=== PATIENT | female | born 1960 | race Two or more races ===

== ENCOUNTER 2020-08-11 14:03 | Outpatient (REF) | payer OTHER, SELFPAY | END 2020-08-11 14:04 | disposition home or self-care (01) | LOC: HO.LAB 14:03 | PROVIDERS: PCP Internal Medicine; Visit Provider Internal Medicine | DX: Z20.828 Contact with and (suspected) exposure to other viral communicable diseases (principal) | CPT/HCPCS: 87635 ==

== ENCOUNTER 2020-08-23 13:51 | Outpatient (REF) | payer OTHER, SELFPAY | END 2020-08-23 13:52 | disposition home or self-care (01) | LOC: HO.LAB 13:51 | PROVIDERS: Visit Provider Internal Medicine | DX: Z20.828 Contact with and (suspected) exposure to other viral communicable diseases (principal) | CPT/HCPCS: 87635 ==

== ENCOUNTER 2021-03-04 12:16 | Emergency (ER) | payer OTHER, SELFPAY ==
--- NOTE | ~2021-03-04 | CT_ITS ---
EXAMINATION: CT SOFT TISSUE NECK WITH CONTRAST CLINICAL INFORMATION: Submandibular mass. COMPARISON: CT facial bones from 03/04/2021. TECHNIQUE: Multidetector helical imaging was performed in the axial plane following the administration of 60 mL of Omnipaque 350 intravenous contrast. Multiple axial reformats and coronal/sagittal reconstructions were created the technologist workstation for review. This CT examination was performed using dose optimization techniques as appropriate, variously including the following: *Automated exposure control. *Adjustment of mA and/or kV according to patient size (this includes techniques or standardized protocols for targeted exams where dose is matched to indication/reason for exam; i.e. extremities or head). *Use of iterative reconstruction technique. DLP: 491 mGy-cm FINDINGS: There is cutaneous thickening in the anterior midline of the neck was 0.6 cm focal nodular thickening extending into the subcutaneous tissues. The parotid and submandibular glands are normal in appearance. Level Ib and IIa lymph nodes measure up to 1.6 cm bilaterally. Multinodular thyroid gland. There is a heterogeneous nodule measuring up to 1.6 cm in the upper pole the right thyroid lobe. Mild to moderate phlegmonous soft tissue edema within the posterior neck. No discrete fluid collection within the deep tissues of the neck. The premaxillary, retromaxillary, pterygopalatine fossa, orbital apical, parapharyngeal, and prelaryngeal adipose tissue is maintained. Otherwise, scattered subcentimeter lymph nodes bilaterally, none of which are pathologically enlarged or abnormally enhancing. No focal lesion or abnormal enhancement within the intrinsic tissues of the tongue or floor of mouth. Normal mucosal contours of the pharynx and larynx without abnormal enhancement. Normal appearance of the hyoid bone, thyroid cartilage, or cartilaginous trachea. The airways remains widely patent. No radiopaque foreign bodies. The atlantooccipital and atlantoaxial articulations remain well aligned. There is anatomic alignment of the vertebral bodies and posterior elements. No evidence of acute fracture or subluxation of the cervical spine. The vertebral body heights are maintained. Straightening of the normal cervical lordosis. Advanced degenerative disc disease at C5-C6 and C6-C7 with disc-osteophyte complex formation. Facet and uncovertebral joint arthropathy leads to osseous encroachment on the neural foramina from C4-C7. No evidence of epidural collection. There is no prevertebral soft tissue swelling. Normal opacification of the cervical arterial and venous structures. The visualized portion of the skull base is without significant abnormalities. The visualized paranasal sinuses are clear. The mastoid air cells and middle ear cavities are clear. Periapical lucency surrounding the maxillary 2nd [address]olar. [address] Upper Chest: The visualized lung apices and upper mediastinum are within normal limits. CT/CT soft tissue neck w con IMPRESSION: 1. Cutaneous thickening and 0.6 cm focal nodular thickening in the subcutaneous tissues of the anterior neck suggestive. In the acute setting, findings are suggestive of cellulitis. Other cutaneous lesions could be considered in the appropriate clinical setting. Mildly prominent nonspecific upper cervical chain lymph nodes. Normal appearance of the parotid and submandibular glands. 2. There is a 1.6 cm nodule in the right thyroid lobe. Recommend further characterization with ultrasound.
--- NOTE | ~2021-03-04 | CT_ITS ---
EXAMINATION: CT FACIAL BONES WITH CONTRAST CLINICAL INFORMATION: Enlarging submandibular mass. Clinical concern regarding abscess. COMPARISON: None TECHNIQUE: Multidetector CT. Examination of the facial region. Imaging after the IV administration of 60 mL of Omnipaque [address] examination was performed using dose optimization techniques as appropriate, variously including the following: *Automated exposure control *Adjustment of mA and/or kV according to patient size (this includes techniques or standardized protocols for targeted exams where dose is matched to indication/reason for exam; i.e. extremities or head) *Use of iterative reconstruction technique DLP: 284 mGy-cm FINDINGS: The anatomy includes from the level of the body of the ventricles to the level of the hyoid region. Specifically, the submandibular region is not completely included. Additional or repeat imaging is recommended. The laterality of the clinical concern is not provided. On the images submitted there is no submandibular abscess demonstrated. There is no focal lesion demonstrated in the parotid on either side. The nasal cavity, nasopharynx, oropharynx, hypopharynx are patent. No enlargement of the epiglottis. No abnormality in the orbit, infratemporal fossa, floor the mouth or visualized portions of the brain. The frontal, ethmoid, sphenoid and maxillary sinuses are well pneumatized and aerated. No definite abnormality the mastoids. Several of the teeth are missing. There is enhancement in the visualized carotids, jugulars and vertebral arteries. There is no suspicious soft tissue mass demonstrated. There are some nonspecific cervical lymph nodes on each side. No definite abnormality in the visualized portions of the spinal canal. CT/CT facial bones w con IMPRESSION: The study was performed through the maxillofacial region and does not include the entire neck soft tissues. Specifically the lower aspect of the submandibular glands are not included. Correlation is necessary to determine if the appropriate area was included. The specific area of clinical concern was not provided. No abscess is demonstrated on the images submitted.
[2021-03-04 12:33] VITALS: BP 154/80; PULSE 105; RESP 20; TEMP 36.6; O2SAT 96; BMI 29.1
[2021-03-04 13:59] LABS: MANUAL DIFF FLAG NO
[2021-03-04 14:00] LABS: Basophils Absolute Auto 0.1 X10*3/uL (0.0-0.2); Basophils Percent Auto 0.6 % (0-2); Eosinophils Absolute Auto 0.2 X10*3/uL (0.0-0.4); Eosinophils Percent Auto 2.5 % (0-4); Hematocrit 45.4 % (37-47); Imm Gran Abs Auto 0.02 X10*3/uL (0.00-0.03); Imm Gran Pct Auto 0.2 % (0.0-0.4); Lymphocytes Absolute Auto 2.5 X10*3/uL (1.2-4.9); Mean Corpuscular Hemoglobin 30.2 pg (27.0-33.0); Mean Corpuscular Volume 91.3 fL (80-98); Monocytes Absolute Auto 0.6 X10*3/uL (0.1-1.2); Monocytes Percent Auto 7.5 % (2-11); Neutrophils Percent Auto 59.2 % (45-73); Platelet Count 252 X10*3/uL (160-400); Red Blood Count 4.97 X10*6/uL (4.20-5.50); Red Cell Distribution Width 11.8 % (11.0-16.0); White Blood Count 8.4 X10*3/uL (4.8-10.8)
[2021-03-04 14:27] LABS: Anion Gap 20 (12-20); Blood Urea Nitrogen 12 mg/dL (9-16); Calcium 9.7 mg/dL (8.4-10.2); Carbon Dioxide 20 mmol/L (22-29); Chloride 103 mmol/L (96-108); Estimated Glomerular Filt Rate > 60; Glucose Random 266 mg/dL (60-115); Potassium 4.4 mmol/L (3.3-5.1); Sodium 139 mmol/L (135-145)
[2021-03-04] MEDS: iohexoL 350 MG/ML 100 ML INFUS..BTL IV ×2 (15:21→17:16)
[2021-03-04 16:34] VITALS: BP 135/79; PULSE 89; RESP 18; O2SAT 98
[2021-03-04] MEDS: 0.9 % Sodium Chloride 1,000 ML 999 ML IVCONT (16:34)
--- NOTE | 2021-03-04 17:00 | PC.NURSE ---
PT RETURNED FROM CT W/O INCIDENT. IV NS HOOKED BACK UP AND IS INFUSING. WAITING REPORTS.
--- NOTE | 2021-03-04 17:59 | ED.SKABFB ---
HPI - Skin/Abscess/Foreign Bdy General Chief complaint: Skin/Abscess/Foreign Body Stated complaint: lump on throat Time Seen by Provider: 03/04/21 12:43 History of Present Illness HPI narrative: Patient complains of lump under chin that developed over the last 24 hours that is mildly uncomfortable, there is no fever no chills no difficulty breathing or swallowing, no other rash Related Data Previous Rx's Medication Instructions Recorded dulaglutide 1.5 mg/0.5 mL 0.75 mg SUBCUT QWEEK 30 Days #1.25 11/25/20 subcutaneous pen injector ml metformin 1,000 mg tablet 1,000 mg PO BID 90 Days #180 tab 11/25/20 ezetimibe 10 mg tablet 10 mg PO DAILY 90 Days #90 tab 12/20/20 meclizine 25 mg tablet 25 mg PO TID PRN #90 tab 12/20/20 sumatriptan succinate 50 mg tablet 50 mg PO DAILY PRN 30 Days #9 tab 12/20/20 amitriptyline 10 mg tablet 10 mg PO BEDTIME #30 tab 01/09/21 blood sugar diagnostic 1 strip MISCELLANEOUS BID 30 Days 01/09/21 #50 strip fluticasone propionate 50 1 spray INTRANASAL BID 30 Days #16 01/09/21 mcg/actuation nasal g spray,suspension lancets 28 gauge #100 ea 01/09/21 sitagliptin 100 mg tablet 100 mg PO DAILY 90 Days #90 tab 01/09/21 cephalexin 500 mg PO QID 7 Days #28 tab 03/04/21 doxycycline hyclate 100 mg PO BID 7 Days #14 cap 03/04/21 Allergies Allergy/AdvReac Type Severity Reaction Status Date / Time Iodinated Contrast Media Allergy Severe VOMITING/SW Verified 01/09/21 16:00 [IV Dye, Iodine Containing] ELLING ibuprofen [From MOTRIN] Allergy Intermediate NAUSEA, Verified 01/09/21 16:00 stomach upset pravastatin AdvReac Unknown elevated Verified 01/09/21 16:00 liver enzymes Review of Systems Review of Systems: Positive for submandibular mass Negatives are no fever no chills no dizziness no weakness no sore throat no difficulty breathing or swallowing or speaking no dental pain no toothache no anorexia no neck pain no chest pain no shortness of breath no vomiting no rash no numbness or weakness Yes all other systems are reviewed and are negative PMFSH Past Medical History Source: nursing notes reviewed Medical History (Updated 03/04/21 @ 18:38 by ERIC Cho) Allergic rhinitis Diabetes mellitus Essential hypertension Migraines Pure hypercholesterolemia Surgical History H/O bilateral breast reduction surgery History of parathyroidectomy History of removal of ovarian cyst Family History Family History Father Leukemia Mother CVD (cardiovascular disease) Sister No problems noted. Brother No problems noted. Social History Social History Smoking Status: Never smoker Advance Directives: No Advance Directives Information Provided: Yes Physical Exam Vital Signs: Vital Signs: Last Vital Signs Temp 97.8 F 03/04/21 12:33 Pulse 89 03/04/21 16:34 Resp 18 03/04/21 16:34 BP 135/79 03/04/21 16:34 Pulse Ox 98 03/04/21 16:34 Body Mass Index 29.1 General appearance is no acute distress calm and cooperative The ears are clear The pharynx is clear with no swelling redness or exudate The voice is normal, there is no impairment of breathing and swallowing no trismus no drooling no voice change The neck is supple There is a mildly tender submandibular mobile mass that is 2-3 cm x 2-3 cm, no redness no fluctuance no discharge The chest is clear to auscultation bilaterally with full symmetrical equal breath sounds Heart no murmur Abdomen soft nontender The extremities full range of motion x4 The skin no rashes Neuro no focal deficit Course Course Course Narrative: Facial CT was ordered for evaluation of submandibular mass Radiologist called and reported that the submandibular area could not be fully seen and a neck CT was ordered Patient remains, and stable throughout the ER visit with no acute changes, vital signs were normal CT scan of soft tissue neck showed findings consistent with cellulitis, no abscess was visualized There was also an incidental finding of a nodule on the right thyroid and they recommended follow-up with an ultrasound, this was explained via fire extinguisher tester to the patient who understood and said she could easily make a follow-up appointment with her doctor and she was given a copy of the report Patient remains well appearing and stable and is discharged on oral antibiotics with advice to return in 2 days for recheck and clear explanation that any increased swelling she should return immediately MDM - Skin/Abscess/Foreign Bdy Lab Data Attestation: I reviewed the patient's lab results. Result diagrams: 03/04/21 13:48 03/04/21 13:48 Labs: Lab Results 03/04/21 03/04/21 Range/Units 13:48 13:48 WBC 8.4 (4.8-10.8) X10*3/uL RBC 4.97 (4.20-5.50) X10*6/uL Hgb 15.0 (12.0-16.0) g/dl Hct 45.4 (37-47) % MCV 91.3 (80-98) fL MCH 30.2 (27.0-33.0) pg MCHC 33.0 (31.0-35.0) g/dl RDW 11.8 (11.0-16.0) % Plt Count 252 (160-400) X10*3/uL MPV 11.0 (9.4-12.3) fL Immature Gran % (Auto) 0.2 (0.0-0.4) % Neut % (Auto) 59.2 (45-73) % Lymph % (Auto) 30.0 (20-40) % [place] % (Auto) 7.5 (2-11) % Eos % (Auto) 2.5 (0-4) % Baso % (Auto) 0.6 (0-2) % Lymph # (Auto) 2.5 (1.2-4.9) X10*3/uL [place] # (Auto) 0.6 (0.1-1.2) X10*3/uL Eos # (Auto) 0.2 (0.0-0.4) X10*3/uL Baso # (Auto) 0.1 (0.0-0.2) X10*3/uL Abs Immat Gran (auto) 0.02 (0.00-0.03) X10*3/uL Absolute Neuts (auto) 5.0 (2.0-8.3) X10*3/uL Absolute Nucleated RBC 0.000 (0.0-0.012) X10*3/uL Nucleated RBC % (auto) 0.0 (0.0-0.2) /100WBC Sodium 139 (135-145) mmol/L Potassium 4.4 (3.3-5.1) mmol/L Chloride 103 (96-108) mmol/L Carbon Dioxide 20 L (22-29) mmol/L Anion Gap 20 (12-20) BUN 12 (9-16) mg/dL Creatinine 0.91 (0.5-1.4) mg/dL Estim Creat Clear Calc 71.0 Estimated GFR > 60 Random Glucose 266 H (60-115) mg/dL Calcium 9.7 (8.4-10.2) mg/dL Imaging Data Neck CT soft tissue: Radiologist's impression: [address] [id number] Scan ReportSigned Patient: Kerry Burch DMR#: [id number]: 08/12/1961Acct:[id number]/Sex: 59 / FADM Date: 03/04/21Loc: [address] Dr: Ordering Physician: CAMI MARIA Date of Service: 03/04/21 Procedure(s): CT soft tissue neck w con Accession Number(s): [id number] cc: CAMI MARIA~ EXAMINATION: CT SOFT TISSUE NECK WITH CONTRAST CLINICAL INFORMATION: Submandibular mass. COMPARISON: CT facial bones from 03/04/2021. TECHNIQUE: Multidetector helical imaging was performed in the axial plane following the administration of 60 mL of Omnipaque 350 intravenous contrast. Multiple axial reformats and coronal/sagittal reconstructions were created the technologist workstation for review. This CT examination was performed using dose optimization techniques as appropriate, variously including the following: *Automated exposure control. *Adjustment of mA and/or kV according to patient size (this includes techniques or standardized protocols for targeted exams where dose is matched to indication/reason for exam; i.e. extremities or head). *Use of iterative reconstruction technique. DLP: 491 mGy-cm FINDINGS: There is cutaneous thickening in the anterior midline of the neck was 0.6 cm focal nodular thickening extending into the subcutaneous tissues. The parotid and submandibular glands are normal in appearance. Level Ib and IIa lymph nodes measure up to 1.6 cm bilaterally. Multinodular thyroid gland. There is a heterogeneous nodule measuring up to 1.6 cm in the upper pole the right thyroid lobe. Mild to moderate phlegmonous soft tissue edema within the posterior neck. No discrete fluid collection within the deep tissues of the neck. The premaxillary, retromaxillary, pterygopalatine fossa, orbital apical, parapharyngeal, and prelaryngeal adipose tissue is maintained. Otherwise, scattered subcentimeter lymph nodes bilaterally, none of which are pathologically enlarged or abnormally enhancing. No focal lesion or abnormal enhancement within the intrinsic tissues of the tongue or floor of mouth. Normal mucosal contours of the pharynx and larynx without abnormal enhancement. Normal appearance of the hyoid bone, thyroid cartilage, or cartilaginous trachea. The airways remains widely patent. No radiopaque foreign bodies. The atlantooccipital and atlantoaxial articulations remain well aligned. There is anatomic alignment of the vertebral bodies and posterior elements. No evidence of acute fracture or subluxation of the cervical spine. The vertebral body heights are maintained. Straightening of the normal cervical lordosis. Advanced degenerative disc disease at C5-C6 and C6-C7 with disc-osteophyte complex formation. Facet and uncovertebral joint arthropathy leads to osseous encroachment on the neural foramina from C4-C7. No evidence of epidural collection. There is no prevertebral soft tissue swelling. Normal opacification of the cervical arterial and venous structures. The visualized portion of the skull base is without significant abnormalities. The visualized paranasal sinuses are clear. The mastoid air cells and middle ear cavities are clear. Periapical lucency surrounding the maxillary 2nd [address]olar. [address] Upper Chest: The visualized lung apices and upper mediastinum are within normal limits. CT/CT soft tissue neck w con IMPRESSION: 1. Cutaneous thickening and 0.6 cm focal nodular thickening in the subcutaneous tissues of the anterior neck suggestive. In the acute setting, findings are suggestive of cellulitis. Other cutaneous lesions could be considered in the appropriate clinical setting. Mildly prominent nonspecific upper cervical chain lymph nodes. Normal appearance of the parotid and submandibular glands. 2. There is a 1.6 cm nodule in the right thyroid lobe. Recommend further characterization with ultrasound. Discharge Plan Discharge Clinical Impression: Cellulitis Qualifiers: Site of cellulitis: neck Qualified Code(s): L03.221 - Cellulitis of neck Patient Disposition: Home, Self-Care Additional Instructions: The swelling under her chin appears to be an infection but no abscess We are treating it with oral antibiotics Because of the location if it gets more swollen, more red, more painful, if you have any difficulty breathing or swallowing or speaking or any concerns, return to the ER any time Return to the ER in 2 days for recheck A thyroid lesion was seen on the CT scan which is not related to today's problem but should be followed closely by primary doctor Prescriptions: New doxycycline hyclate 100 mg capsule 100 mg PO BID 7 Days Qty: 14 RF: 0 cephalexin 500 mg tablet 500 mg PO QID 7 Days Qty: 28 RF: 0 No Action dulaglutide 1.5 mg/0.5 mL pen injector 0.75 mg subcut QWEEK 30 Days Qty: 1.25 RF: 6 metformin 1,000 mg tablet 1,000 mg PO BID 90 Days Qty: 180 RF: 2 sumatriptan succinate 50 mg tablet 50 mg PO DAILY PRN (Reason: migraine headache) 30 Days Qty: 9 RF: 6 ezetimibe 10 mg tablet 10 mg PO DAILY 90 Days Qty: 90 RF: 3 meclizine 25 mg tablet 25 mg PO TID PRN (Reason: dizziness) Qty: 90 RF: 0 amitriptyline 10 mg tablet 10 mg PO BEDTIME Qty: 30 RF: 3 Januvia 100 mg tablet 100 mg PO DAILY 90 Days Qty: 90 RF: 3 FreeStyle Lite Strips Strip 1 strip miscellaneous BID 30 Days Qty: 50 RF: 11 (DME) lancets [FreeStyle Lancets] 28 gauge misc See Rx Instructions .ROUTE .MEDSUPPLY Qty: 100 RF: 0 fluticasone propionate [Flonase Allergy Relief] 50 mcg/actuation spray,suspension 1 spray intranasal BID 30 Days Qty: 16 RF: 6
[2021-03-04] MEDS: cephALEXin 500 MG CAPSULE PO (18:51)
== END 2021-03-04 19:04 | disposition home or self-care (01) ==
PROVIDERS: Physician Assistant Medical; Emergency Provider Emergency Medicine; PCP Internal Medicine
DX: L03.221 Cellulitis of neck (principal); M54.2 Cervicalgia; Z79.899 Other long term (current) drug therapy
CPT/HCPCS: 36415; 70487; 70491; 80048; 85025; 99284; Q9967

== ENCOUNTER 2021-04-01 09:23 | Outpatient (REF) | payer OTHER, SELFPAY ==
[2021-04-01 10:36] LABS: Creatinine Urine 89.72 mg/dL; Microalbum/Creatinine Ratio Ur 16.7 ug/mg cr
[2021-04-01 10:39] LABS: Alanine Aminotransferase 53 U/L (0-31); Albumin Level 4.4 g/dL (3.5-5.0); Alkaline Phosphatase 66 U/L (39-117); Anion Gap 17 (12-20); Aspartate Amino Transferase 25 U/L (5-31); Bilirubin Total 0.5 mg/dL (0.0-1.0); Blood Urea Nitrogen 12 mg/dL (9-16); Calcium 9.8 mg/dL (8.4-10.2); Carbon Dioxide 22 mmol/L (22-29); Chloride 103 mmol/L (96-108); Cholesterol 194 mg/dL; Estimated Glomerular Filt Rate > 60; Glucose Fasting 332 mg/dL (60-99); HDL Cholesterol 44 mg/dL; LDL Cholesterol Calculated 92 mg/dl; Potassium 4.4 mmol/L (3.3-5.1); Sodium 138 mmol/L (135-145); Total Protein 7.2 g/dL (6.5-8.0); Triglycerides 292 mg/dL
[2021-04-01 11:02] LABS: Free T4 (Free Thyroxine) 1.05 ng/dL (0.71-1.85); Thyroid Stimulating Hormone 2.13 uIU/mL (0.32-4.0)
[2021-04-04 13:33] LABS: Thyroglobulin Antibodies <1 IU/mL (< or = 1); Thyroid Peroxidase Antibodies 23 IU/mL (<9)
[2021-04-05 14:01] LABS: Vitamin D 25-OH, D2 <4 ng/mL; Vitamin D 25-OH, D3 52 ng/mL; Vitamin D 25-OH, Total 52 ng/mL (30-100)
== END 2021-04-01 09:24 | disposition home or self-care (01) ==
LOC: HO.LAB 09:23
PROVIDERS: PCP Internal Medicine; Visit Provider Internal Medicine
DX: E11.9 Type 2 diabetes mellitus without complications (principal); E78.5 Hyperlipidemia, unspecified; I10 Essential (primary) hypertension; E55.9 Vitamin D deficiency, unspecified; E04.1 Nontoxic single thyroid nodule
CPT/HCPCS: 36415; 80053; 80061; 82043; 82306; 84439; 84443; 86376; 86800

== ENCOUNTER 2021-04-18 10:20 | Outpatient (REF) | payer OTHER, SELFPAY ==
--- NOTE | ~2021-04-18 | US_ITS ---
EXAMINATION: US THYROID CLINICAL INFORMATION: Nontoxic single thyroid nodule COMPARISON: CT soft tissue neck 03/04/2021. Ultrasound abdomen 11/23/2019 and 11/06/2018. TECHNIQUE: Linear transducer grayscale and color Doppler examination with attention to the region of the thyroid. FINDINGS: SIZE: Measurements of the thyroid lobes and nodules are given in sagittal, anteroposterior and transverse dimensions respectively. Right Thyroid Lobe: 5.4 x 1.4 x 2.8 cm, volume 11.3 mL. Parenchyma: The gland echotexture is homogeneous. Thyroid vascularity is normal. Left Thyroid Lobe: 6.0 x 1.7 x 2.1 cm, volume 10.7 mL. Parenchyma: The gland echotexture is homogeneous. Thyroid vascularity is normal. Isthmus: 0.14 cm in maximum AP dimension. Estimated total number of nodules greater than or equal to 1 cm: 1. Chain Forming Machine Operator nodules are described as follows: 1. Location: Right mid. Size: 1.6 x 0.85 x 1.5 cm, volume 1.1 mL. Nodule characteristics: Composition: Solid/almost completely solid (2). Echogenicity: Hypoechoic (2). Shape: Not taller than wide (0). Margins: Lobulated (2). Echogenic Foci: None (0). ACR TI-RADS total points:6 ACR TI-RADS category: 4 2. Location: Right inferior. Size: 0.68 x 0.38 x 0.5 cm, volume 0.07 mL. Nodule characteristics: Composition: Mixed cystic and solid (1). Echogenicity: Hypoechoic (2). Shape: Not taller than wide (0). Margins: Smooth (0). Echogenic Foci: None (0). ACR TI-RADS total points: 3 ACR TI-RADS category: 3 3. Location: Left inferior. Size: 0.74 x 0.53 x 0.69 cm, volume 0.14 mL. Nodule characteristics: Composition: Mixed cystic and solid (1). Echogenicity: Hypoechoic (2). Shape: Not taller than wide (0). Margins: Smooth (0). Echogenic Foci: None (0). ACR TI-RADS total points: 3 ACR TI-RADS category: 3 4. Location: Left inferior. Size: 0.68 x 0.43 x 0.81 cm, volume 0.12 mL. Nodule characteristics: Composition: Mixed cystic and solid (1). Echogenicity: Hypoechoic (2). Shape: Not taller than wide (0). Margins: Smooth (0). Echogenic Foci: None (0). ACR TI-RADS total points: 3 ACR TI-RADS category: 3 5. Location: Left inferior. Size: 0.43 x 0.29 x 0.43 cm, volume 0.03 mL. Nodule characteristics: Composition: Mixed cystic and solid (1). Echogenicity: Hypoechoic (2). Shape: Not taller than wide (0). Margins: Smooth (0). Echogenic Foci: None (0). ACR TI-RADS total points: 3 ACR TI-RADS category: 3 NODES: No lymphadenopathy is seen in the tissue surrounding the thyroid gland. US/US thyroid IMPRESSION: Upper normal-sized thyroid gland. Bilateral thyroid nodules. Largest nodule in the right mid lobe meets ultrasound TI RADS criteria for fine-needle aspiration is described below. ACR TI-RADS RECOMMENDATION REFERENCE: Ultrasound-guided fine-needle aspiration, followup ultrasound, no further follow up. * TR1 (0 point) and TR 2 (2 points): No FNA or follow up * TR3 (3 points): FNA if more than or equal to 2.5 cm in maximum dimension, followup ultrasound in 1, 3 and 5 years if 1.5 to 2.4 cm in maximum dimension. * TR4 (4-6 points): FNA if more than or equal to 1.5 cm in maximum dimension, followup ultrasound in 1, 2, 3 and 5 years if 1 to 1.4 cm in maximum dimension. * TR5 (more than or equal to 7 points): FNA if more than or equal to 1 cm in maximum dimension, followup ultrasound every year for 5 years if 0.5 to 0.9 cm in maximum dimension. * TR3, TR4 or TR5 nodules that are below the size threshold for follow up receive no follow up.
== END 2021-04-18 10:21 | disposition home or self-care (01) ==
LOC: HO.US 10:20
PROVIDERS: Visit Provider Internal Medicine
DX: E04.1 Nontoxic single thyroid nodule (principal)
CPT/HCPCS: 76536

== ENCOUNTER 2021-05-25 09:52 | Outpatient (REF) | payer OTHER, SELFPAY ==
--- NOTE | ~2021-05-25 | MM_ITS ---
EXAMINATION: MM SCREENING DIGITAL BREAST TOMOSYNTHESIS, BILATERAL CLINICAL INFORMATION: Screening. Asymptomatic. Prior reduction mammoplasty, 2012 The lifetime risk of breast cancer based on the Tyrer-Cuzick Model is 10%. COMPARISON: Mammography: 09/28/2019, 05/16/2018, 04/25/2017 TECHNIQUE: Digital breast tomosynthesis is performed in both the craniocaudal and mediolateral oblique views along with computer-aided detection (CAD). Synthesized 2D images are generated from the tomosynthesis. FINDINGS: There are scattered areas of fibroglandular density (ACR BI-RADS breast composition Category b). There are no significant masses, abnormal calcifications, or other abnormalities. There is minor scarring and scattered benign oil cysts consistent with the reduction mammoplasty. There is no developing density. No abnormal calcifications. No significant changes. MM/MM tomosynthesis screening BI IMPRESSION: No mammographic evidence of malignancy. ASSESSMENT: BI-RADS 2: Benign RECOMMENDATION: Routine annual mammography screening. This patient's information was entered into a reminder system with a target due date for their next mammogram.
== END 2021-05-25 09:53 | disposition home or self-care (01) ==
LOC: HO.MAMMO 09:52
PROVIDERS: Visit Provider Internal Medicine
DX: Z12.31 Encounter for screening mammogram for malignant neoplasm of breast (principal)
CPT/HCPCS: 77063; 77067

== ENCOUNTER 2022-05-29 09:11 | Outpatient (REF) | payer OTHER, SELFPAY ==
--- NOTE | ~2022-05-29 | MM_ITS ---
EXAMINATION: MM SCREENING DIGITAL BREAST TOMOSYNTHESIS, BILATERAL CLINICAL INFORMATION: Screening. Asymptomatic. Status post previous reduction mammoplasty. The lifetime risk of breast cancer based on the Tyrer-Cuzick Model is 16.7%. COMPARISON: Mammography: May 25, 2021 and studies dating back to February 19, 2014 TECHNIQUE: Digital breast tomosynthesis is performed in both the craniocaudal and mediolateral oblique views along with computer-aided detection (CAD). Synthesized 2D images are generated from the tomosynthesis. FINDINGS: There are scattered areas of fibroglandular density (ACR BI-RADS breast composition Category b). There are no new significant masses, abnormal calcifications, or other abnormalities. Postsurgical changes seen bilaterally. MM/MM tomosynthesis screening BI IMPRESSION: There are no significant changes from prior study. ASSESSMENT: BI-RADS 2: Benign RECOMMENDATION: Routine annual mammography screening. This patient's information was entered into a reminder system with a target due date for their next mammogram.
== END 2022-05-29 09:12 | disposition home or self-care (01) ==
LOC: HO.MAMMO 09:11
PROVIDERS: PCP Internal Medicine; Visit Provider Internal Medicine
DX: Z12.31 Encounter for screening mammogram for malignant neoplasm of breast (principal)
CPT/HCPCS: 77063; 77067

== ENCOUNTER 2022-06-21 10:00 | Outpatient (REF) | payer OTHER, SELFPAY ==
[2022-06-21 11:48] LABS: Alanine Aminotransferase 40 U/L (0-31); Albumin Level 4.4 g/dL (3.5-5.0); Alkaline Phosphatase 58 U/L (39-117); Anion Gap 18 (12-20); Aspartate Amino Transferase 23 U/L (5-31); Bilirubin Total 0.4 mg/dL (0.0-1.0); Blood Urea Nitrogen 13 mg/dL (9-16); Calcium 9.4 mg/dL (8.4-10.2); Carbon Dioxide 23 mmol/L (22-29); Chloride 100 mmol/L (96-108); Cholesterol 196 mg/dL; Estimated Glomerular Filt Rate > 60; Glucose Fasting 272 mg/dL (60-99); HDL Cholesterol 42 mg/dL; LDL Cholesterol Calculated 98 mg/dl; Phosphorus 3.8 mg/dL (2.7-4.5); Potassium 4.4 mmol/L (3.3-5.1); Sodium 137 mmol/L (135-145); Total Protein 7.3 g/dL (6.5-8.0); Triglycerides 280 mg/dL
[2022-06-21 11:55] LABS: Microalbum/Creatinine Ratio Ur 12.3 ug/mg cr
[2022-06-21 11:57] LABS: Vitamin D 25-OH Total 57.3 ng/mL (>30)
[2022-06-21 12:15] LABS: Free T4 (Free Thyroxine) 1.07 ng/dL (0.71-1.85); Thyroid Stimulating Hormone 2.25 uIU/mL (0.32-4.0); Vitamin D 25-OH Total 56.4 ng/mL (>30)
[2022-06-24 12:52] LABS: Calcium (PTHI) 9.7 mg/dL (8.6-10.4); PTHI 36 pg/mL (16-77)
== END 2022-06-21 10:01 | disposition home or self-care (01) ==
LOC: HO.LAB 10:00
PROVIDERS: Absent Provider Internal Medicine; PCP Internal Medicine; Visit Provider Internal Medicine
DX: E55.9 Vitamin D deficiency, unspecified (principal); E04.2 Nontoxic multinodular goiter; E78.5 Hyperlipidemia, unspecified; E11.65 Type 2 diabetes mellitus with hyperglycemia; Z86.39 Personal history of other endocrine, nutritional and metabolic disease
CPT/HCPCS: 36415; 80053; 80061; 82043; 82306; 83970; 84100; 84439; 84443

== ENCOUNTER 2022-10-04 08:42 | Outpatient (REF) | payer OTHER, SELFPAY ==
--- NOTE | 2022-10-04 09:18 | PM.OP ---
Brief Operative Note Date of Service: 10/04/22 Pre-op diagnosis: Multinodular Thyroid Procedure: This is doctor Wanda Chowdary. This is an ultrasound-guided fine-needle aspiration report. Date of Examination: Indication: Multinodular Thyroid Porcedure: Procedure was explained to the patient. Alternatives, the risk and benefits were discussed. Written consent was obtained. A time-out was also obtained. After sterile preparation, fine-needle aspiration of a right mid pole 1.6 cm thyroid nodule was performed using direct ultrasound guidance to confirm accurate needle placement. Four aspirations were made using 27 gauge needles. An additional 2 aspirations were made using 25 guage needles. Samples were submitted for cytology. One pass was dedicated for [employer] Gene sequencing horse shoer testing. The patient tolerated the procedure well. Aftercare instructions were provided. Impression: Uncomplicated fine needle aspiration biopsy of a right mid pole 1.6 cm thyroid nodule under ultrasound guidance. Surgeon: Wanda Chowdary, DO Was an Member Service Representative used for this Procedure?: No Estimated blood loss (mL): 0
[2022-10-04] MEDS: Lidocaine HCl 1 % 20 ML VIAL 5 ML SUBCUT (09:42)
== END 2022-10-04 08:43 | disposition home or self-care (01) ==
LOC: HO.US 08:42
PROVIDERS: Visit Provider Internal Medicine
DX: E04.2 Nontoxic multinodular goiter (principal)
CPT/HCPCS: 10005; 88172; 88173; 88177

== ENCOUNTER → 2022-10-24 09:20 | Outpatient (BNVA) | payer OTHER, SELFPAY | PROVIDERS: PCP Internal Medicine; Visit Provider Internal Medicine | DX: Z13.89 Encounter for screening for other disorder (principal) ==

== ENCOUNTER 2023-06-04 10:26 | Outpatient (REF) | payer OTHER, SELFPAY ==
--- NOTE | ~2023-06-04 | MM_ITS ---
EXAMINATION: MM SCREENING DIGITAL BREAST TOMOSYNTHESIS, BILATERAL CLINICAL INFORMATION: Screening. Asymptomatic. The lifetime risk of breast cancer based on the Tyrer-Cuzick Model is 17.2%. COMPARISON: Mammography: This study is compared with prior exams dating back to 2019. TECHNIQUE: Digital breast tomosynthesis is performed in both the craniocaudal and mediolateral oblique views along with computer-aided detection (CAD). Synthesized 2D images are generated from the tomosynthesis. FINDINGS: There are scattered areas of fibroglandular density (ACR BI-RADS breast composition Category b). There are no significant masses, abnormal calcifications, or other abnormalities. MM/MM tomosynthesis screening BI IMPRESSION: No mammographic evidence of malignancy. ASSESSMENT: BI-RADS BI-RADS 1 - Negative RECOMMENDATION: Routine annual mammography screening. 1 year F/U This examination should not preclude the clinical evaluation of a suspicious palpable abnormality. This patient's information was entered into a reminder system with a target due date for their next mammogram.
== END 2023-06-04 10:27 | disposition home or self-care (01) ==
LOC: HO.MAMMO 10:26
PROVIDERS: PCP Internal Medicine; Visit Provider Internal Medicine
DX: Z12.31 Encounter for screening mammogram for malignant neoplasm of breast (principal)
CPT/HCPCS: 77063; 77067

== ENCOUNTER → 2023-06-04 10:45 | Outpatient (BNV) | payer OTHER, SELFPAY | PROVIDERS: PCP Internal Medicine; Visit Provider Radiology Diagnostic Radiology | DX: Z12.31 Encounter for screening mammogram for malignant neoplasm of breast (principal) | CPT/HCPCS: 77063; 77067 ==

== ENCOUNTER 2023-08-03 10:54 | Emergency (ER) | payer OTHER, SELFPAY ==
[2023-08-03 11:00] VITALS: BP 114/78; PULSE 103; RESP 19; TEMP 36.3; O2SAT 97; BMI 27.0
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
== END 2023-08-03 11:15 | disposition home or self-care (01) ==
LOC: HO.ED 11:14
PROVIDERS: Emergency Provider Emergency Medicine; PCP Internal Medicine
DX: S29.012A Strain of muscle and tendon of back wall of thorax, initial encounter (principal); X58.XXXA Exposure to other specified factors, initial encounter; E11.9 Type 2 diabetes mellitus without complications; I10 Essential (primary) hypertension; E78.00 Pure hypercholesterolemia, unspecified; Z79.84 Long term (current) use of oral hypoglycemic drugs; Z79.85 Long-term (current) use of injectable non-insulin antidiabetic drugs; Y93.9 Activity, unspecified; Y92.9 Unspecified place or not applicable; Y99.9 Unspecified external cause status
CPT/HCPCS: 99282; 99283

== ENCOUNTER 2023-08-21 17:30 | Emergency (ER) | payer OTHER, SELFPAY ==
[2023-08-21 18:04] VITALS: BP 155/77; PULSE 105; RESP 18; TEMP 37.1; O2SAT 98; BMI 27.5
--- NOTE | 2023-08-21 18:07 | ED.UPPEXIN ---
HPI - Extremity Injury (Upper) General Chief Complaint: General Medical Stated Complaint: finger nail injury Time Seen by Provider: 08/21/23 18:08 Source: patient Mode of arrival: ambulatory Limitations: no limitations History of Present Illness HPI narrative: 62 yo female presents to the ER for evaluation of left fingernail injury. 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 School nurse put a band aid on it. No active bleeding. MD complaint: injury to: left and finger Onset (ago): hour(s) Other Extremity Injury: left: fingers Other injuries: none Handedness: right Place: work Severity: moderate Relieving factors: none Exacerbating factors: none Associated symptoms: denies other symptoms Treatments prior to arrival: bandage Related Data Previous Rx's Medication Instructions Recorded sumatriptan succinate 50 mg tablet 50 mg PO DAILY PRN migraine 12/20/20 headache 30 days #9 tabs blood sugar diagnostic (FreeStyle 1 strip miscellaneous BID 30 days 01/09/21 Lite Strips) #50 strips lancets 28 gauge (FreeStyle #100 ea 01/09/21 Lancets) flash glucose sensor (FreeStyle #1 ea 06/27/22 Marysol 14 Day Sensor kit) nystatin 100,000 unit/gram topical 1 appl topical BID 2 weeks #15 06/27/22 powder (Nystop) grams sitagliptin phosphate 100 mg 100 mg PO DAILY 90 days #90 tabs 10/10/22 tablet (Januvia) ezetimibe 10 mg tablet 10 mg PO DAILY 90 days #90 tabs 11/15/22 amitriptyline 10 mg tablet 10 mg PO BEDTIME 90 days #90 tabs 12/11/22 fluticasone propionate 50 1 spray intranasal BID 30 days #16 04/26/23 mcg/actuation nasal grams spray,suspension (Flonase Allergy Relief) metformin 1,000 mg tablet 1,000 mg PO BID 90 days #180 tabs 04/26/23 dulaglutide 4.5 mg/0.5 mL 4.5 mg (0.5 mL) subcut QWEEK 30 05/23/23 subcutaneous pen injector days #2.5 mL (Trulicity) acetaminophen 500 mg tablet 500 mg PO Q6H PRN pain #20 tabs 08/03/23 methocarbamol 500 mg tablet 500 mg PO TID PRN muscle spasm #15 08/03/23 tabs Allergies Allergy/AdvReac Type Severity Reaction Status Date / Time Iodinated Contrast Media Allergy Severe VOMITING/SW Verified 02/25/23 17:38 [IV Dye, Iodine Containing] ELLING ibuprofen [From MOTRIN] Allergy Intermediate NAUSEA, Verified 02/25/23 17:38 stomach upset pravastatin AdvReac Intermediate elevated Verified 02/25/23 17:38 liver enzymes Review of Systems Review of Systems: Yes all other systems are reviewed and are negative [facility] Past Medical History Medical History Allergic rhinitis Diabetes mellitus Essential hypertension Migraines Multinodular thyroid Poor compliance Pure hypercholesterolemia Thyroid nodule Vitamin D deficiency Surgical History H/O bilateral breast reduction surgery History of parathyroidectomy History of removal of ovarian cyst Family History Family History Father Leukemia Mother CVD (cardiovascular disease) Sister Thyroid disease Brother No problems noted. Social History Social History Housing: Apartment Alcohol intake: never Patient Tobacco Use Status: Never used Tobacco e-Cigarette/Vaping Use: Never Used Second Hand Smoke Exposure: No Advance Directives: No Advance Directives Information Provided: No service: No Current occupational status: unemployed Cognitive needs: No Hearing needs: No Vision needs: No Physical Exam Vital Signs: Vital Signs: Last Vital Signs Temp 98.7 F 08/21/23 18:04 Pulse 105 H 08/21/23 18:04 Resp 18 08/21/23 18:04 BP 155/77 H 08/21/23 18:04 Pulse Ox 98 08/21/23 18:04 O2 Del Method Room Air 08/21/23 18:04 BMI result Body Mass Index 27.5 Appearance: Alert. Oriented X3. No acute distress. HEENT: normal inspection CVS: Normal heart rate and rhythm. Pulses normal. Respiratory: No respiratory distress. Skin: Skin warm and dry. Normal skin color. Normal skin turgor. No rashes. Extremities: left index finger with long acrylic nail in place. able to lift the proximal nail bed that it attached to the acrylic, distal nail bed intact. FROM of the digit, warm and well perfused Neuro: Oriented X 3. grossly normal, nonfocal Medical Decision Making Medical Decision Making MDM Narrative: 62 yo female presenting to the ER for evaluation of left index finger nail injury. +avulsion w/ acrylic nail in place. no role in removal today. advised to get the nail trimmed as short as possible to prevent further tearing of the nail bed. FROM on exam, doubt fracture. no active bleeding. stable for d/c home - discussed dx and tx. Differential Diagnosis Differential Diagnoses: The differential diagnosis associated with the presentation includes nail avulsion, finger fracture, finger sprain Tests considered The following testing was considered but not selected: considered x-ray finger but no evidence of acute fx on exam Prescription Management I considered prescription management with: Antibiotic Critical Care Time Critical Care Time Critical Care Time: No Discharge Plan Discharge Clinical Impression: Avulsion of nail of left index finger Patient Disposition: Home, Self-Care Instructions: Nail Avulsion (ED) Additional Instructions: recommend trimming the left index finger nail very short. do not rip it off keep it covered and protected with a band aid use antibiotic ointment to the area monitor for signs and symptoms of infection If you develop new or worsening symptoms call 911 or come back to the ER for further evaluation. Prescriptions: No Action sumatriptan succinate 50 mg tablet 50 mg PO DAILY PRN (Reason: migraine headache) 30 Days Qty: 9 6RF Januvia 100 mg tablet 100 mg PO DAILY 90 Days Qty: 90 3RF ezetimibe 10 mg tablet 10 mg PO DAILY 90 Days Qty: 90 3RF amitriptyline 10 mg tablet 10 mg PO BEDTIME 90 Days Qty: 90 1RF metformin 1,000 mg tablet 1,000 mg PO BID 90 Days Qty: 180 0RF fluticasone propionate [Flonase Allergy Relief] 50 mcg/actuation spray,suspension 1 spray intranasal BID 30 Days Qty: 16 6RF Rx Instructions: administer into each nostril Trulicity 4.5 mg/0.5 mL pen injector 4.5 mg subcut QWEEK 30 Days Qty: 2.5 3RF methocarbamol 500 mg tablet 500 mg PO TID PRN (Reason: muscle spasm) Qty: 15 0RF acetaminophen 500 mg tablet 500 mg PO Q6H PRN (Reason: pain) Qty: 20 0RF FreeStyle Lite Strips Strip 1 strip miscellaneous BID 30 Days Qty: 50 11RF (DME) lancets [FreeStyle Lancets] 28 gauge misc See Rx Instructions .ROUTE .MEDSUPPLY Qty: 100 0RF Rx Instructions: As directed (DME) FreeStyle Marysol 14 Day Sensor Kit See Rx Instructions .Route Qty: 1 0RF Rx Instructions: As directed nystatin [Nystop] 100,000 unit/gram powder 1 appl topical BID 14 Days Qty: 15 0RF Interventions: ED Discharge Assessment Last Done: 08/21/23 18:23 Discharge Date/Time: 08/21/23 18:24
== END 2023-08-21 18:24 | disposition home or self-care (01) ==
LOC: HO.ED 18:13
PROVIDERS: Emergency Provider Emergency Medicine; PCP Internal Medicine
DX: S61.301A Unspecified open wound of left index finger with damage to nail, initial encounter (principal); X58.XXXA Exposure to other specified factors, initial encounter; Y93.9 Activity, unspecified; Y92.9 Unspecified place or not applicable; Y99.9 Unspecified external cause status
CPT/HCPCS: 99282

== ENCOUNTER 2023-09-25 16:08 | Outpatient (REF) | payer OTHER, SELFPAY ==
--- NOTE | ~2023-09-25 | US_ITS ---
EXAMINATION: US THYROID CLINICAL INFORMATION: Nontoxic multinodular goiter. COMPARISON: Ultrasound-guided fine needle aspiration 10/04/2022. Thyroid ultrasound 04/18/2021. CT soft tissue neck with contrast 03/04/2021. TECHNIQUE: Linear transducer hurt-scale and color Doppler examination with attention to the region of the thyroid. FINDINGS: SIZE: Measurements of the thyroid lobes and nodules are given in sagittal, anteroposterior and transverse dimensions respectively. Right Thyroid Lobe: 5.5 x 1.8 x 2.1 cm, volume 10.5 mL. Previously 5.4 x 1.4 x 2.8 cm, volume 11.3 mL. Parenchyma: The gland echotexture is homogeneous. Thyroid vascularity is normal. Left Thyroid Lobe: 4.6 x 1.7 x 2.2 cm, volume 8.8 mL. Previously 6.0 x 1.7 x 2.1 cm, volume 10.7 mL. Parenchyma: The gland echotexture is homogeneous. Thyroid vascularity is normal. Isthmus: 0.18 cm in maximum AP dimension. Previously 0.14 cm. Estimated total number of nodules greater than or equal to 1 cm: 1. [employer] nodules are described as follows: 1. Location: Right superior. Size: 0.8 x 0.6 x 0.7 cm, volume 0.2 mL. Previously: Not documented on the previous study. Nodule characteristics: Composition: Mixed cystic and solid (1). Echogenicity: Hypoechoic (2). Shape: Not taller than wide (0). Margins: Ill-defined (0). Echogenic Foci: None (0). ACR TI-RADS total points: 3 ACR TI-RADS category: 3 2. Location: Right mid. Size: 1.4 x 0.9 x 1.4 cm, volume 0.9 mL. Previously: 1.6 x 0.8 x 1.5 cm, volume 1.1 mL. Nodule characteristics: Composition: Solid/almost completely solid (2). Echogenicity: Hypoechoic (2). Shape: Not taller than wide (0). Margins: Smooth (0). Echogenic Foci: None (0). ACR TI-RADS total points: 4 Previous: 4 ACR TI-RADS category: 4 Previous: 4 Significant change in size (>/= 20% in 2 dimensions and minimal increase of 2 mm or 50% or greater increase in volume): No Change in features: No Change in ACR TI-RADS risk category: No 3. Location: Right mid/inferior. Size: 0.6 x 0.5 x 0.6 cm, volume 0.11 mL. Previously: 0.5 x 0.4 x 0.7 cm, volume 0.07 mL. Nodule characteristics: Composition: Solid (2). Echogenicity: Hypoechoic (2). Shape: Not taller than wide (0). Margins: Smooth (0). Echogenic Foci: None (0). ACR TI-RADS total points: 4 Previous: 3 ACR TI-RADS category: 4 Previous: 3 Significant change in size (>/= 20% in 2 dimensions and minimal increase of 2 mm or 50% or greater increase in volume): No Change in features: Yes Change in ACR TI-RADS risk category: Yes 4. Location: Left inferior. Size: 0.9 x 0.5 x 0.9 cm, volume 0.2 mL. Previously: 0.8 x 0.4 x 0.7 cm, volume 0.1 mL. Nodule characteristics: Composition: Mixed cystic and solid (1). Echogenicity: Hypoechoic (2). Shape: Not taller than wide (0). Margins: Smooth (0). Echogenic Foci: None (0). ACR TI-RADS total points: 3 Previous: 3 ACR TI-RADS category: 3 Previous: 3 Significant change in size (>/= 20% in 2 dimensions and minimal increase of 2 mm or 50% or greater increase in volume): No Change in features: No Change in ACR TI-RADS risk category: No 5. Location: Left inferior. Size: 0.8 x 0.3 x 0.7 cm, volume 0.10 mL. Previously: 0.7 x 0.5 x 0.7 cm, volume 0.14 mL. Nodule characteristics: Composition: Mixed cystic and solid (1). Echogenicity: Hypoechoic (2). Shape: Not taller than wide (0). Margins: Smooth (0). Echogenic Foci: None (0). ACR TI-RADS total points: 3 Previous: 3 ACR TI-RADS category: 3 Previous: 3 Significant change in size (>/= 20% in 2 dimensions and minimal increase of 2 mm or 50% or greater increase in volume): No Change in features: No Change in ACR TI-RADS risk category: No NODES: No lymphadenopathy is seen in the tissue surrounding the thyroid gland. US/US thyroid IMPRESSION: Multinodular goiter with only a single nodule measuring greater than 1 cm in size. This 1.4 cm category 4 nodule, I believe has been aspirated in the past. Please correlate with any available pathology reports. Continued yearly follow up may be necessary. None of the other nodules warrant follow up. ACR TI-RADS RECOMMENDATION REFERENCE: Ultrasound-guided fine-needle aspiration, follow up ultrasound, no further followup. * TR1 (0 point) and TR2 (2 points): No FNA or followup * TR3 (3 points): FNA if more than or equal to 2.5 cm in maximum dimension, follow up ultrasound in 1, 3 and 5 years if 1.5 to 2.4 cm in maximum dimension. * TR4 (4-6 points): FNA if more than or equal to 1.5 cm in maximum dimension, follow up ultrasound in 1, 2, 3 and 5 years if 1 to 1.4 cm in maximum dimension. * TR5 (more than or equal to 7 points): FNA if more than or equal to 1 cm in maximum dimension, follow up ultrasound every year for 5 years if 0.5 to 0.9 cm in maximum dimension. * TR3, TR4 or TR5 nodules that are below the size threshold for follow up receive no followup.
== END 2023-09-25 16:09 | disposition home or self-care (01) ==
LOC: HO.US 16:08
PROVIDERS: PCP Internal Medicine; Visit Provider Internal Medicine Endocrinology, Diabetes & Metabolism
DX: E04.2 Nontoxic multinodular goiter (principal)
CPT/HCPCS: 76536

== ENCOUNTER 2023-11-22 06:41 | Outpatient (REF) | payer OTHER, SELFPAY ==
[2023-11-22 07:34] LABS: Free T4 (Free Thyroxine) 1.33 ng/dL (0.71-1.85); Thyroid Stimulating Hormone 2.37 uIU/mL (0.32-4.0)
== END 2023-11-22 06:42 | disposition home or self-care (01) ==
LOC: HO.LAB 06:41
PROVIDERS: PCP Internal Medicine; Visit Provider Internal Medicine Endocrinology, Diabetes & Metabolism
DX: E04.2 Nontoxic multinodular goiter (principal)
CPT/HCPCS: 36415; 84439; 84443

== ENCOUNTER 2023-11-26 15:00 | Outpatient (AMB) | payer OTHER, SELFPAY ==
[2023-11-26 15:07] VITALS: BP 144/80; PULSE 88; BMI 27.0
--- NOTE | 2023-11-26 15:07 | A.OFFVIS_ITS ---
Intake Vital Signs 11/26/23 15:07 Height 5 ft 5 in Weight 162 lb 7.691 oz BMI 27.0 BP 144/80 H Blood Pressure Location Lt brachial Position Sitting Pulse 88 Pulse Source Pulse Oximeter Intake Visit Reasons: F/U NTMNG-confirmed Intake Note: Patient presents today for NTMNG follow up, last seen by Dr. Head on 10/24/2022. Novelty Candy Maker Required: Yes Novelty Candy Maker Language: Metrology Specialist Name: Emily medical staff Information Interpreted: non-clinical & clinical Accompanied by: Self / Same As Patient Allergies Iodinated Contrast Media [IV Dye, Iodine Containing] Allergy (Severe, Verified 11/26/23 15:12) VOMITING/SWELLING ibuprofen [From MOTRIN] Allergy (Intermediate, Verified 11/26/23 15:12) NAUSEA, stomach upset pravastatin Adverse Reaction (Intermediate, Verified 11/26/23 15:12) elevated liver enzymes Medication List - Last Reconciled 11/26/23 by Javi Guerrero MD acetaminophen 500 mg PO Q6H PRN amitriptyline 10 mg PO BEDTIME 90 days blood sugar diagnostic (FreeStyle Lite Strips) 1 strip miscellaneous BID 30 days dulaglutide (Trulicity) 4.5 mg (0.5 mL) subcut QWEEK 30 days ezetimibe 10 mg PO DAILY 90 days flash glucose sensor (FreeStyle Marysol 14 Day Sensor kit) As directed fluticasone propionate 50 mcg/actuation (Flonase Allergy Relief) 1 spray intranasal BID 30 days lancets (FreeStyle Lancets) As directed metformin 1,000 mg PO BID 90 days methocarbamol 500 mg PO TID PRN sitagliptin phosphate (Januvia) 100 mg PO DAILY 90 days HPI HPI Comments History of Present Illness Details 62 YO F with PMHx autoimmune thyroid disease who is seen in F/U for MNG.. The patient last saw Dr. Head 10/24/2022 She was found to have a multinodular thyroid in 2020. She had full TFTs at that time which revealed mild elevations of her TPO antibodies, but TSH remained WNL. She had a thyroid US which revealed a multinodular thyroid. She was more recently referred to Endocrinology. She underwent FNA biopsy of her RMP 1.6 cm thyroid nodule 10/04/2022 with benign (bethesda category II) cytology. She presents today to review these results. She denies any compressive symptoms. Denies any symptoms of hyper or hypothyroidism. Denies any history of head or neck irradiation. Does mention a history of thyroid cancer in her Sister. She also reports a history of hyperparathyroidism and previously underwent a surgical parathyroidectomy at [facility] in [address] King. Labs currently WN. Thyroid US: 04/18/2021 Right Thyroid Lobe: 5.4 x 1.4 x 2.8 cm, volume 11.3 mL. Parenchyma: The gland echotexture is homogeneous. Thyroid vascularity is normal. Left Thyroid Lobe: 6.0 x 1.7 x 2.1 cm, volume 10.7 mL. Parenchyma: The gland echotexture is homogeneous. Thyroid vascularity is normal. Isthmus: 0.14 cm in maximum AP dimension. Estimated total number of nodules greater than or equal to 1 cm: 1. Food And Nutrition Supervisor nodules are described as follows: 1. Location: Right mid. ?? ? Size: 1.6 x 0.85 x 1.5 cm, volume 1.1 mL. ?? ? Nodule characteristics: ?? ? Composition: Solid/almost completely solid (2). ?? ? Echogenicity: Hypoechoic (2). ?? ? Shape: Not taller than wide (0). ?? ? Margins: Lobulated (2). ?? ? Echogenic Foci: None (0). ?? ? ACR TI-RADS total points:6 ?? ? ACR TI-RADS category: 4 2. Location: Right inferior. ?? ? Size: 0.68 x 0.38 x 0.5 cm, volume 0.07 mL. ?? ? Nodule characteristics: ?? ? Composition: Mixed cystic and solid (1). ?? ? Echogenicity: Hypoechoic (2). ?? ? Shape: Not taller than wide (0). ?? ? Margins: Smooth (0). ?? ? Echogenic Foci: None (0). ?? ? ACR TI-RADS total points: 3 ?? ? ACR TI-RADS category: 3 3. Location: Left inferior. ?? ? Size: 0.74 x 0.53 x 0.69 cm, volume 0.14 mL. ?? ? Nodule characteristics: ?? ? Composition: Mixed cystic and solid (1). ?? ? Echogenicity: Hypoechoic (2). ?? ? Shape: Not taller than wide (0). ?? ? Margins: Smooth (0). ?? ? Echogenic Foci: None (0). ?? ? ACR TI-RADS total points: 3 ?? ? ACR TI-RADS category: 3 4. Location: Left inferior. ?? ? Size: 0.68 x 0.43 x 0.81 cm, volume 0.12 mL. ?? ? Nodule characteristics: ?? ? Composition: Mixed cystic and solid (1). ?? ? Echogenicity: Hypoechoic (2). ?? ? Shape: Not taller than wide (0). ?? ? Margins: Smooth (0). ?? ? Echogenic Foci: None (0). ?? ? ACR TI-RADS total points: 3 ?? ? ACR TI-RADS category: 3 5.? Location: Left inferior. ?? ? Size: 0.43 x 0.29 x 0.43 cm, volume 0.03 mL. ?? ? Nodule characteristics: ?? ? Composition: Mixed cystic and solid (1). ?? ? Echogenicity: Hypoechoic (2). ?? ? Shape: Not taller than wide (0). ?? ? Margins: Smooth (0). ?? ? Echogenic Foci: None (0). ?? ? ACR TI-RADS total points: 3 ?? ? ACR TI-RADS category: 3 NODES: No lymphadenopathy is seen in the tissue surrounding the thyroid gland. Labs: Laboratory Tests 06/21/22 06/21/22 10:53 10:53 Albumin 4.4 25-OH Vitamin D To howie 56.4 TSH 2.25 Free T4 1.07 PTH Intact 36 Calcium (PTH Intac t) 9.7 PFSH Medical History Allergic rhinitis Diabetes mellitus Essential hypertension Migraines Multinodular thyroid Poor compliance Pure hypercholesterolemia Thyroid nodule Vitamin D deficiency Surgical History H/O bilateral breast reduction surgery History of removal of ovarian cyst History of parathyroidectomy Family History Father Leukemia Mother CVD (cardiovascular disease) Sister Thyroid disease Brother No problems noted. Social History Housing: Apartment Alcohol intake: never Patient Tobacco Use Status: Never used Tobacco e-Cigarette/Vaping Use: Never Used Second Hand Smoke Exposure: No service: No Current occupational status: unemployed Cognitive needs: No Hearing needs: No Vision needs: No Physical Exam Vital Signs: Last Vital Signs Pulse 88 11/26/23 15:07 BP 144/80 H 11/26/23 15:07 BMI result Body Mass Index 27.0 Const Other: Thyroid gland is normal size weighs about 15 g. There are no thyroid nodules palpated Assessment & Plan Assessment & Plan (1) Thyroid nodule: Code(s): E04.1 - Nontoxic single thyroid nodule Plan: 62-year-old female with a history of multinodular goiter with dominant right thyroid nodule status post FNA with benign cytology. Recent thyroid ultrasound shows stability in the size of the nodule. She is clinically and biochemically euthyroid . At this point, patient returned to the care of her primary care provider who could order a thyroid ultrasound about 2 years time. If there is any change in the size or characteristics of the nodules, the patient returned back to endocrinology Coding Level of Care Code Est Pt Level 3 (42551) Diagnoses Thyroid nodule E04.1
== END 2023-11-26 15:46 | disposition home or self-care (01) ==
PROVIDERS: PCP Internal Medicine; Visit Provider Internal Medicine Endocrinology, Diabetes & Metabolism
DX: E04.1 Nontoxic single thyroid nodule (principal)
CPT/HCPCS: 99213

== ENCOUNTER → 2023-11-26 15:00 | Outpatient (BNVA) | payer OTHER, SELFPAY | PROVIDERS: PCP Internal Medicine; Visit Provider Internal Medicine Endocrinology, Diabetes & Metabolism | DX: E04.1 Nontoxic single thyroid nodule (principal) | CPT/HCPCS: 99212 ==

== ENCOUNTER 2024-01-31 09:07 | Outpatient (REF) | payer OTHER, SELFPAY ==
[2024-01-31 11:28] LABS: Alanine Aminotransferase 38 U/L (0-31); Albumin Level 4.3 g/dL (3.5-5.0); Alkaline Phosphatase 63 U/L (39-117); Anion Gap 14 (12-20); Aspartate Amino Transferase 24 U/L (5-31); Bilirubin Total 0.5 mg/dL (0.0-1.0); Blood Urea Nitrogen 14 mg/dL (9-16); Calcium 9.7 mg/dL (8.4-10.2); Carbon Dioxide 25 mmol/L (22-29); Chloride 102 mmol/L (96-108); Cholesterol 169 mg/dL (<200); Estimated Glomerular Filt Rate > 60; Glucose Fasting 218 mg/dL (60-99); HDL Cholesterol 42 mg/dL (>40); LDL Cholesterol Calculated 88 mg/dL (<100); Potassium 4.3 mmol/L (3.3-5.1); Sodium 137 mmol/L (135-145); Total Protein 7.5 g/dL (6.5-8.0); Triglycerides 197 mg/dL (<150)
[2024-01-31 11:36] LABS: Vitamin D 25-OH Total 55.3 ng/mL (>30)
[2024-01-31 12:49] LABS: Creatinine Urine 42.03 mg/dL; Microalbum/Creatinine Ratio Ur 14.2 ug/mg cr (<30)
== END 2024-01-31 09:08 | disposition home or self-care (01) ==
LOC: HO.LAB 09:07
PROVIDERS: PCP Internal Medicine; Visit Provider Internal Medicine
DX: E55.9 Vitamin D deficiency, unspecified (principal); E11.9 Type 2 diabetes mellitus without complications; E78.5 Hyperlipidemia, unspecified; E78.00 Pure hypercholesterolemia, unspecified
CPT/HCPCS: 36415; 80053; 80061; 82043; 82306; 82570

== ENCOUNTER 2024-02-04 17:08 | Outpatient (AMB) | payer OTHER, SELFPAY ==
[2024-02-04 17:15] VITALS: BP 132/70; BMI 27.1
--- NOTE | 2024-02-04 17:15 | A.OFFPC_ITS ---
Vital Signs 02/04/24 17:15 Height 5 ft 5 in Weight 163 lb BMI 27.1 BP 132/70 Blood Pressure Location Lt brachial Position Sitting Intake Visit Reasons: Physical exam Intake Note: Patient here for a physical exam English And Reading Instructor Required: No Accompanied by: Self / Same As Patient Allergies Iodinated Contrast Media [IV Dye, Iodine Containing] Allergy (Severe, Verified 02/04/24 17:31) VOMITING/SWELLING ibuprofen [From MOTRIN] Allergy (Intermediate, Verified 02/04/24 17:31) NAUSEA, stomach upset pravastatin Adverse Reaction (Intermediate, Verified 02/04/24 17:31) elevated liver enzymes Medication List - Last Reconciled 02/04/24 by Mery Garduno MD acetaminophen 500 mg PO Q6H PRN amitriptyline 10 mg PO BEDTIME 90 days blood sugar diagnostic (FreeStyle Lite Strips) 1 strip miscellaneous BID 30 days dulaglutide (Trulicity) 4.5 mg (0.5 mL) subcut QWEEK 90 days ezetimibe 10 mg PO DAILY 90 days flash glucose sensor (FreeStyle Marysol 14 Day Sensor kit) As directed fluticasone propionate 50 mcg/actuation (Flonase Allergy Relief) 1 spray intranasal BID 30 days lancets (FreeStyle Lancets) As directed metformin 1,000 mg PO BID 90 days sitagliptin phosphate (Januvia) 100 mg PO DAILY 90 days Tobacco use date assessed: 02/04/24 Dental Screening Dental Screen Date: 02/04/24 Did you have a dental visit in the last 12 months?: Yes Did you have a dental problem in the last 6 months where you did not have access to dental care?: No Was dental information given to patient?: Patient has dentist HPI HPI Comments History of Present Illness Details This is a 62-year-old female with diabetes mellitus type 2 that comes for her physical exam. A1c not on goal and she declines insulin. I will add glipizide. Last diabetic eye exam was less than a year ago. Last mammogram was 2022. Last Pap smear was 2 years ago and was normal as per patient. Last colonoscopy was 2015 and next colonoscopy should be 2025. No chest pain or shortness of breath. [facility] Medical History (Updated 02/04/24 @ 18:02 by Mery Garduno MD) Vitamin D deficiency Multinodular thyroid Poor compliance Thyroid nodule Allergic rhinitis Migraines Pure hypercholesterolemia Essential hypertension Diabetes mellitus Surgical History H/O bilateral breast reduction surgery History of removal of ovarian cyst History of parathyroidectomy Family History Father Leukemia Mother CVD (cardiovascular disease) Sister Thyroid disease Brother No problems noted. Social History Housing: Apartment Alcohol intake: never Patient Tobacco Use Status: Never used Tobacco e-Cigarette/Vaping Use: Never Used Second Hand Smoke Exposure: No service: No Current occupational status: unemployed Cognitive needs: No Hearing needs: No Vision needs: No Questionnaire PHQ-9 Over the last 2 weeks, how often have you been bothered by any of the following problems? 1. Little interest or pleasure in doing things: not at all 2. Feeling down, depressed, or hopeless: not at all 3. Trouble falling or staying asleep, or sleeping too much: not at all 4. Feeling tired or having little energy: not at all 5. Poor appetite or overeating: not at all 6. Feeling bad about yourself - or that you are a failure or have let yourself or your family down: not at all 7. Trouble concentrating on things, such as reading the newspaper or watching television: not at all 8. Moving or speaking so slowly that other people could have noticed. Or the opposite - being so fidgety or restless that you have been moving around a lot more than usual: not at all 9. Thoughts that you would be better off or of hurting yourself in some way: not at all Total score: 0 Depression Screening Interpretation: Negative Depression Screening Done: Yes 35161 - PHQ-9 Billing: Yes Source: Developed by Drs. Javi Farr, Radha Clements, Lemuel Mistry and colleagues, with an educational keira from [employer]. Thrive Questionnaire Date Thrive assessed: 02/04/24 I am a: Patient What is your living situation today?: I have a steady place to live Within the past 12 months, did the food you bought not last and you didn't have the money to get more?: Never true Within the past 12 months, did you worry whether your food would run out before you got money to buy more?: Never true Do you have trouble paying for medicines?: No Do you have trouble getting transportation to medical appointments?: No Do you have trouble paying your heating and electricity bill?: No Do you have trouble taking care of your child, family member or friend?: No Do you have trouble with day-to-day activities such as bathing, preparing meals, shopping, managing finances, etc.?: No Are you currently unemployed and looking for a job?: No Are you interested in more education?: No Please select the resources that you would like help with: None Currently or been in a relationship where the following occur: no concerns reported THRIVE Score: 0 AUDIT C Alcohol Use Questionnaire (AUDIT-C) 1. How often do you have a drink containing alcohol?: Never Total Score: 0 KEVIN-7 AMB Questionnaire KEVIN-7 Date KEVIN - 7 assessed: 02/04/24 Feeling nervous, anxious, or on edge: 0 = Not at all Not being able to stop or control worryin = Not at all Worrying too much about different things: 0 = Not at all Trouble relaxin = Not at all Being so restless that it is hard to sit still: 0 = Not at all Becoming easily annoyed or irritable: 0 = Not at all Feeling afraid as if something awful might happen: 0 = Not at all Total KEVIN-7 score (0-4 normal; 5-9 mild; 10-14 moderate; 15-21 severe): 0 Source: Developed by Drs. Javi Farr, Radha Clements, Lemuel Mistry and colleagues, with an educational keira from [employer]. KEVIN-7 Assessment Billing KEVIN-7 Assessment Tool: KEVIN-7 Assessment 12076 Review of Systems Const All systems reviewed & are unremarkable except as noted in HPI and below Eyes Reports no additional complaints, Denies change in vision and Denies other visual disturbances Card Denies chest pain at rest, Denies chest pain with activity, Denies edema, Denies irregular heart rhythm, Denies claudication, Denies dyspnea, Denies dyspnea on exertion, Denies orthopnea, Denies paroxysmal nocturnal dyspnea and Denies slow heart rate Resp Denies cough, Denies dyspnea and Denies dyspnea on exertion GI Denies abdominal pain, Denies change in bowel habits, Denies excessive flatus, Denies nausea and Denies vomiting Denies urinary incontinence, Denies urinary hesitancy and Denies urinary urgency Physical exam (Primary Care) Vital Signs: Last Vital Signs BP 132/70 02/04/24 17:15 BMI result Body Mass Index 27.1 Tobacco/Smoking Status: Tobacco use Status Tobacco use date assessed 02/04/24 02/04/24 17:23 Patient Tobacco Use Status Never used Tobacco 02/04/24 17:23 e-Cigarette/Vaping Use Never Used 02/04/24 17:23 PHQ-9: PHQ-9 Score PHQ-9: Total score 0 02/04/24 17:38 Depression Screening Interpretation: Negative Thrive Assessment: Date of Thrive Assessment Date Thrive assessed 02/04/24 02/04/24 17:23 Currently or been in a relationship where the following occur: no concerns reported Const Orientation/consciousness: patient oriented x3 [facility] Head: Yes normal to inspection, Yes normocephalic and Yes atraumatic Ears: external ears normal Eyes General: appearance normal, both eyes and all related structures Eyelids: Yes eyelids normal Conjunctivae: conjunctivae normal Neck Neck: Yes normal visual inspection and Yes supple Resp Effort & Inspection: normal respiratory effort Auscultation: clear to auscultation bilaterally Cardio Jugular venous distension: no JVD Rate: regular rate Rhythm: regular rhythm Heart sounds: S1 normal heart sound present and S2 normal heart sound present GI Inspection: Yes normal to inspection Palpation (GI): Soft to palpation and nontender Auscultation: normal bowel sounds Skin General skin exam: no rashes or lesions noted Neuro General: patient oriented x3 and no focal motor deficits Extrem General: Yes full ROM Psych Appearance: grossly normal Results AMB Hemoglobin A1c AMB Hemoglobin A1c 8.7 % Last Edit by JAMARCUS Becker on 02/04/24 17:2 6 Results Reviewed Results Reviewed: Laboratory Last Values Hgb A1c (Clinic) 8.7 % (4.0-6.0) H 02/04/24 17:23 Assessment and Plan Assessment & Plan (1) Physical exam: Code(s): Z00.00 - Encounter for general adult medical examination without abnormal findings Plan: Repeat in a year. (2) Diabetes mellitus: Code(s): E11.9 - Type 2 diabetes mellitus without complications Qualifiers: Diabetes mellitus type: type 2 Diabetes mellitus intermediate insulin use: without adjunct faculty for medical terminology use Diabetes mellitus complication status: with hyperglycemia Qualified Code(s): E11.65 - Type 2 diabetes mellitus with hyperglycemia Plan: Continue Trulicity, metformin and Januvia. Start glipizide. A1c goal is equal or less than 7%. Orders: Orders AMB Hemoglobin A1c Today E11.9 - Type 2 diabetes mellitus without complications Microalbumin, Random (w Creat) 4 Months E11.9 - Type 2 diabetes mellitus without complications Vitamin D 25-OH Total 4 Months E55.9 - Vitamin D deficiency, unspecified Comprehensive Varney. Panel Fast 4 Months E11.9 - Type 2 diabetes mellitus without complications Lipid Panel 4 Months E78.5 - Hyperlipidemia, unspecified Thyroid Stimulating Hormone 4 Months E04.2 - Nontoxic multinodular goiter Medications: New glipizide 10 mg PO BID 180 tabs 1RF 90 days E11.9 - Type 2 diabetes mellitus without complications Coding Level of Care Code Est Pt Prev Care 40-64y(11298) Diagnoses Physical exam Z00.00 Type 2 diabetes mellitus with hyperglycemia, without long-term current use of insulin E11.65 Diabetes mellitus type: type 2 Diabetes mellitus intermediate insulin use: without intermediate use Diabetes mellitus complication status: with hyperglycemia Additional Codes KEVIN-7 Assessment Billing - KEVIN-7 Assessment Tool: KEVIN-7 Assessment 44980 ([id number]) Time Spent (min) 35
== END 2024-02-04 17:45 | disposition home or self-care (01) ==
PROVIDERS: PCP Internal Medicine; Visit Provider Internal Medicine
DX: Z00.00 Encounter for general adult medical examination without abnormal findings (principal); E11.65 Type 2 diabetes mellitus with hyperglycemia
CPT/HCPCS: 83036; 99396

== ENCOUNTER 2024-06-04 07:01 | Outpatient (REF) | payer OTHER, SELFPAY ==
[2024-06-04 07:43] LABS: Alanine Aminotransferase 44 U/L (0-31); Albumin Level 4.4 g/dL (3.5-5.0); Alkaline Phosphatase 66 U/L (39-117); Anion Gap 13 (12-20); Aspartate Amino Transferase 29 U/L (5-31); Bilirubin Total 0.6 mg/dL (0.0-1.0); Blood Urea Nitrogen 12 mg/dL (9-16); Calcium 10.4 mg/dL (8.4-10.2); Carbon Dioxide 28 mmol/L (22-29); Chloride 100 mmol/L (96-108); Cholesterol 183 mg/dL (<200); Estimated Glomerular Filt Rate > 60; Glucose Fasting 295 mg/dL (60-99); HDL Cholesterol 41 mg/dL (>40); LDL Cholesterol Calculated 83 mg/dL (<100); Potassium 4.4 mmol/L (3.3-5.1); Sodium 137 mmol/L (135-145); Total Protein 7.7 g/dL (6.5-8.0); Triglycerides 298 mg/dL (<150)
[2024-06-04 07:59] LABS: Thyroid Stimulating Hormone 2.85 uIU/mL (0.32-4.0); Vitamin D 25-OH Total 60.3 ng/mL (>30)
[2024-06-04 08:48] LABS: Creatinine Urine 58.45 mg/dL; Microalbum/Creatinine Ratio Ur 15.3 ug/mg cr (<30)
== END 2024-06-04 07:02 | disposition home or self-care (01) ==
LOC: HO.LAB 07:01
PROVIDERS: PCP Internal Medicine; Visit Provider Internal Medicine
DX: E11.9 Type 2 diabetes mellitus without complications (principal); E55.9 Vitamin D deficiency, unspecified; E78.5 Hyperlipidemia, unspecified; E04.2 Nontoxic multinodular goiter
CPT/HCPCS: 36415; 80053; 80061; 82043; 82306; 82570; 84443

== ENCOUNTER 2024-06-09 10:33 | Outpatient (AMB) | payer OTHER, SELFPAY ==
--- NOTE | 2024-06-09 10:45 | A.OFFPC_ITS ---
Vital Signs 06/09/24 10:46 Height 5 ft 5 in Weight 159 lb BMI 26.5 BP 120/68 Blood Pressure Location Lt brachial Position Sitting Intake Visit Reasons: dm Intake Note: Patient here for a follow up DM Associate Professor Of Biblical Studies Required: No Accompanied by: Self / Same As Patient Allergies Iodinated Contrast Media [IV Dye, Iodine Containing] Allergy (Severe, Verified 06/09/24 11:06) VOMITING/SWELLING ibuprofen [From MOTRIN] Allergy (Intermediate, Verified 06/09/24 11:06) NAUSEA, stomach upset pravastatin Adverse Reaction (Intermediate, Verified 06/09/24 11:06) elevated liver enzymes Medication List - Last Reconciled 06/09/24 by Mery Garduno MD acetaminophen 500 mg PO Q6H PRN amitriptyline 10 mg PO BEDTIME 90 days blood sugar diagnostic (FreeStyle Lite Strips) 1 strip miscellaneous BID 30 days ezetimibe 10 mg PO DAILY 90 days flash glucose sensor (FreeStyle Marysol 14 Day Sensor kit) As directed fluticasone propionate 50 mcg/actuation (Flonase Allergy Relief) 1 spray intranasal BID 30 days glipizide 10 mg PO BID 90 days hydrocortisone 1% (Anti-Itch (hydrocortisone)) 1 appl topical TID PRN 2 weeks lancets (FreeStyle Lancets) As directed metformin 1,000 mg PO BID 90 days semaglutide (Ozempic) 0.5 mg (0.736 mL) subcut QWEEK 4 weeks sitagliptin phosphate (Januvia) 100 mg PO DAILY 90 days Tobacco use date assessed: 02/04/24 Dental Screening Dental Screen Date: 02/04/24 HPI HPI Comments History of Present Illness Details This is a 62-year-old female with diabetes mellitus type 2, pure hypercholesterolemia and migraines that comes today for follow-up on her conditions. A1c elevated but she has been out her medications for few weeks. I discontinue Januvia. Start her on Jardiance. She will continue glipizide and metformin. I will increase Ozempic to 1 mg. On ezetimibe for her cholesterol in which her goal is supposed to be less than 70. On amitriptyline for migraine prophylaxis in which migraines has been less frequent and less intense. No chest pain or shortness on breath. She declines insulin. [facility] Medical History Vitamin D deficiency Multinodular thyroid Poor compliance Thyroid nodule Allergic rhinitis Migraines Pure hypercholesterolemia Essential hypertension Diabetes mellitus Surgical History H/O bilateral breast reduction surgery History of removal of ovarian cyst History of parathyroidectomy Family History Father Leukemia Mother CVD (cardiovascular disease) Sister Thyroid disease Brother No problems noted. Social History Housing: Apartment Alcohol intake: never Patient Tobacco Use Status: Never used Tobacco e-Cigarette/Vaping Use: Never Used Second Hand Smoke Exposure: No service: No Current occupational status: unemployed Cognitive needs: No Hearing needs: No Vision needs: No Questionnaire Thrive Questionnaire Date Thrive assessed: 02/04/24 KEVIN-7 AMB Questionnaire KEVIN-7 Date KEVIN - 7 assessed: 02/04/24 Source: Developed by Drs. Javi Farr, Radha Clements, Lemuel Mistry and colleagues, with an educational keira from [employer]. Review of Systems Const All systems reviewed & are unremarkable except as noted in HPI and below Card Denies chest pain at rest, Denies chest pain with activity, Denies edema, Denies irregular heart rhythm, Denies claudication, Denies dyspnea, Denies dyspnea on exertion, Denies orthopnea, Denies paroxysmal nocturnal dyspnea and Denies slow heart rate Resp Denies cough, Denies dyspnea and Denies dyspnea on exertion GI Denies abdominal pain, Denies change in bowel habits, Denies excessive flatus, Denies nausea and Denies vomiting Denies urinary incontinence, Denies urinary hesitancy and Denies urinary urgency Physical exam (Primary Care) Vital Signs: Last Vital Signs BP 120/68 06/09/24 10:46 BMI result Body Mass Index 26.5 Tobacco/Smoking Status: Tobacco use Status Tobacco use date assessed 02/04/24 06/09/24 10:52 Patient Tobacco Use Status Never used Tobacco 06/09/24 10:52 e-Cigarette/Vaping Use Never Used 06/09/24 10:52 Thrive Assessment: Date of Thrive Assessment Date Thrive assessed 02/04/24 06/09/24 10:52 Resp Effort & Inspection: normal respiratory effort Auscultation: clear to auscultation bilaterally Cardio Jugular venous distension: no JVD Rate: regular rate Rhythm: regular rhythm Heart sounds: S1 normal heart sound present and S2 normal heart sound present Extrem General: Yes full ROM Results AMB Hemoglobin A1c AMB Hemoglobin A1c 11.1 % Last Edit by JAMARCUS Becker on 06/09/24 11: 03 Results Reviewed Results Reviewed: Laboratory Last Values Hgb A1c (Clinic) 11.1 % (4.0-6.0) H 06/09/24 10:45 Assessment and Plan Assessment & Plan (1) Diabetes mellitus: Code(s): E11.9 - Type 2 diabetes mellitus without complications Qualifiers: Diabetes mellitus type: type 2 Diabetes mellitus laborer marine terminal insulin use: without residential use Diabetes mellitus complication status: with hyperglycemia Qualified Code(s): E11.65 - Type 2 diabetes mellitus with hyperglycemia Plan: Continue metformin and glipizide. Discontinue Januvia. Start Jardiance. Increase Ozempic to 1 mg. A1c goal is equal or less than 7%. (2) Pure hypercholesterolemia: Code(s): E78.00 - Pure hypercholesterolemia, unspecified Plan: Continue ezetimibe. LDL goal is less than 70. (3) Migraines: Code(s): G43.909 - Migraine, unspecified, not intractable, without status migrainosus Qualifiers: Migraine type: without aura Status migrainosus presence: without status migrainosus Intractability: not intractable Qualified Code(s): G43.009 - Migraine without aura, not intractable, without status migrainosus Plan: Continue amitriptyline for migraine prophylaxis. Orders: Orders AMB Hemoglobin A1c Today E11.65 - Type 2 diabetes mellitus with hyperglycemia Medications: New empagliflozin (Jardiance) 10 mg PO DAILY 90 tabs 1RF 90 days semaglutide (Ozempic) 1 mg (0.75 mL) subcut QWEEK 3 mL 0RF 4 weeks blood-glucose meter (FreeStyle Lite Meter kit) As directed 1 ea 0RF E11.65 - Type 2 diabetes mellitus with hyperglycemia Refilled metformin 1,000 mg PO BID 180 tabs 0RF 90 days blood sugar diagnostic (FreeStyle Lite Strips) 1 strip miscellaneous BID 50 strips 11RF 30 days lancets (FreeStyle Lancets) As directed 100 ea 0RF glipizide 10 mg PO BID 180 tabs 1RF 90 days E11.9 - Type 2 diabetes mellitus without complications Coding Level of Care Code Est Pt Level 3 (11753) Complex EM visit Add On G2211 Diagnoses Type 2 diabetes mellitus with hyperglycemia, without long-term current use of insulin E11.65 Diabetes mellitus type: type 2 Diabetes mellitus residential insulin use: without residential use Diabetes mellitus complication status: with hyperglycemia Pure hypercholesterolemia E78.00 Migraine without aura and without status migrainosus, not intractable G43.009 Migraine type: without aura Status migrainosus presence: without status migrainosus Intractability: not intractable Time Spent (min) 19
[2024-06-09 10:46] VITALS: BP 120/68; BMI 26.5
== END 2024-06-09 11:15 | disposition home or self-care (01) ==
PROVIDERS: PCP Internal Medicine; Visit Provider Internal Medicine
DX: E11.65 Type 2 diabetes mellitus with hyperglycemia (principal); E78.00 Pure hypercholesterolemia, unspecified; G43.009 Migraine without aura, not intractable, without status migrainosus
CPT/HCPCS: 83036; 99213; G2211

== ENCOUNTER 2024-06-10 09:22 | Outpatient (REF) | payer OTHER, SELFPAY | END 2024-06-10 09:23 | disposition home or self-care (01) | LOC: HO.MAMMO 09:22 | PROVIDERS: PCP Internal Medicine; Visit Provider Internal Medicine | DX: Z12.31 Encounter for screening mammogram for malignant neoplasm of breast (principal) | CPT/HCPCS: 77063; 77067 ==

== ENCOUNTER → 2024-06-10 09:45 | Outpatient (BNV) | payer OTHER, SELFPAY | PROVIDERS: PCP Internal Medicine; Visit Provider Radiology Diagnostic Radiology | DX: Z12.31 Encounter for screening mammogram for malignant neoplasm of breast (principal) | CPT/HCPCS: 77063; 77067 ==

== ENCOUNTER 2024-06-21 12:21 | Emergency (ER) | payer OTHER, SELFPAY ==
--- NOTE | ~2024-06-21 | XR_ITS ---
EXAMINATION:XR ankle RT min 3V, XR foot RT min 3V VIEWS ACQUIRED: Frontal lateral obliques, total 5 views right ankle and foot. CLINICAL INFORMATION: Reason for Exam pain/swelling COMPARISON: None available at the time of this dictation. FINDINGS: There is no evidence of acute fracture or dislocation. Intertarsal, tarsometatarsal, metatarsophalangeal and interphalangeal joints are intact. Surrounding soft tissues is normal. , Ankle mortise is preserved. Talar dome is intact. Medial and lateral malleoli are normal. There are small posterior and inferior calcaneal spurs. There are vascular calcifications. There is an accessory ossicle near the navicular bone. XR/XR foot RT min 3V IMPRESSION: 1. No radiographic evidence of acute fracture. 2. There are small calcaneal spurs. 3. There are vascular calcifications.
--- NOTE | ~2024-06-21 | XR_ITS ---
EXAMINATION:XR ankle RT min 3V, XR foot RT min 3V VIEWS ACQUIRED: Frontal lateral obliques, total 5 views right ankle and foot. CLINICAL INFORMATION: Reason for Exam pain/swelling COMPARISON: None available at the time of this dictation. FINDINGS: There is no evidence of acute fracture or dislocation. Intertarsal, tarsometatarsal, metatarsophalangeal and interphalangeal joints are intact. Surrounding soft tissues is normal. , Ankle mortise is preserved. Talar dome is intact. Medial and lateral malleoli are normal. There are small posterior and inferior calcaneal spurs. There are vascular calcifications. There is an accessory ossicle near the navicular bone. XR/XR ankle RT min 3V IMPRESSION: 1. No radiographic evidence of acute fracture. 2. There are small calcaneal spurs. 3. There are vascular calcifications.
--- NOTE | 2024-06-21 12:46 | ED_ITS ---
HPI - Extremity Injury (Lower) General Chief Complaint: Extremity Injury, Lower Stated Complaint: right foot pain Time Seen by Provider: 06/21/24 13:28 Source: patient and RN notes reviewed Mode of arrival: ambulatory Limitations: no limitations History of Present Illness ED Provider: Pilar Adler PA-C HPI Narrative: This is a 62-year-old female who presents emergency department with complaints of right foot and ankle pain since yesterday. Patient denies any recent injury or trauma. She states that she has been using flip-flops more often. She denies history of injury of her ankle in the past. Pain worsens with weight- bearing, and with palpation. No history of gout. Denies any fevers, chills, chest pain or shortness breast. No other complaints or concerns at this time. MD complaint: ankle injury and foot injury Other symptoms: none Related Data Previous Rx's ?Medication ?Instructions ?Recorded flash glucose sensor (FreeStyle #1 ea 06/27/22 Marysol 14 Day Sensor kit) acetaminophen 500 mg tablet 500 mg PO Q6H PRN pain #20 tabs 08/03/23 ezetimibe 10 mg tablet 10 mg PO DAILY 90 days #90 tabs 10/29/23 fluticasone propionate 50 1 spray intranasal BID 30 days #16 10/29/23 mcg/actuation nasal grams spray,suspension (Flonase Allergy Relief) amitriptyline 10 mg tablet 10 mg PO BEDTIME 90 days #90 tabs 12/24/23 hydrocortisone 1 % topical cream 1 appl topical TID PRN skin 04/20/24 (Anti-Itch (hydrocortisone)) irritation 2 weeks #28.4 grams blood sugar diagnostic (FreeStyle 1 strip miscellaneous BID 30 days 06/09/24 Lite Strips) #50 strips blood-glucose meter (FreeStyle #1 ea 06/09/24 Lite Meter kit) empagliflozin 10 mg tablet 10 mg PO DAILY 90 days #90 tabs 06/09/24 (Jardiance) glipizide 10 mg tablet 10 mg PO BID 90 days #180 tabs 06/09/24 lancets 28 gauge (FreeStyle #100 ea 06/09/24 Lancets) metformin 1,000 mg tablet 1,000 mg PO BID 90 days #180 tabs 06/09/24 semaglutide 1 mg/dose (4 mg/3 mL) 1 mg (0.75 mL) subcut QWEEK 4 06/09/24 subcutaneous pen injector (Ozempic) weeks #3 mL semaglutide 0.25 mg or 0.5 mg (2 0.5 mg (0.736 mL) subcut QWEEK 4 06/14/24 mg/3 mL) subcutaneous pen injector weeks #2.944 mL (Ozempic) Allergies Allergy/AdvReac Type Severity Reaction Status Date / Time Iodinated Contrast Media Allergy Severe VOMITING/SW Verified 06/21/24 12:49 [IV Dye, Iodine Containing] ELLING ibuprofen [From MOTRIN] Allergy Intermediate NAUSEA, Verified 06/21/24 12:49 stomach upset pravastatin AdvReac Intermediate elevated Verified 06/21/24 12:49 liver enzymes Review of Systems Review of Systems: Yes all other systems are reviewed and are negative Constitutional: Constitutional: Reports as per [facility] Past Medical History Attestation statement: The following information was validated with the patient. Medical History Vitamin D deficiency Multinodular thyroid Poor compliance Thyroid nodule Allergic rhinitis Migraines Pure hypercholesterolemia Essential hypertension Diabetes mellitus Surgical History H/O bilateral breast reduction surgery History of removal of ovarian cyst History of parathyroidectomy Family History Family History Father Leukemia Mother CVD (cardiovascular disease) Sister Thyroid disease Brother No problems noted. Social History Social History Housing: Apartment Unable to assess alcohol history related to: Unknown Alcohol intake: never Patient Tobacco Use Status: Never used Tobacco Smoked in Last 30 Days: No e-Cigarette/Vaping Use: Never Used Second Hand Smoke Exposure: No Use of substances other than those prescribed or required for medical reasons: Unknown Advance Directives: No Advance Directives Information Provided: Yes service: No Current occupational status: unemployed Cognitive needs: No Hearing needs: No Vision needs: No Physical Exam Vital Signs: Vital Signs: Last Vital Signs Temp 97.7 F 06/21/24 14:51 Pulse 93 06/21/24 14:51 Resp 14 06/21/24 14:51 BP 133/88 08/18/24 14:51 Pulse Ox 96 06/21/24 14:51 O2 Del Method Room Air 06/21/24 14:51 BMI result Body Mass Index 26.9 Const: General: cooperative, comfortable and no acute distress Orientation/consciousness: patient oriented x3 Limitations: no limitations HEENT: Head: Yes normal to inspection, Yes normocephalic and Yes atraumatic Ears: hearing grossly normal bilaterally General nose exam: Normal external nose present Face and sinus: Yes normal facial exam Mouth: Normal oral and palatal mucosa present, oropharynx normal and moist mucous membranes Throat: Yes posterior oropharynx normal Eyes: General: appearance normal, both eyes and all related structures Eyelids: Yes eyelids normal Conjunctivae: conjunctivae normal Sclerae: sclerae normal Pupils: Equal, round and reactive pupils present EOM: EOMs intact bilaterally Neck: Neck: Yes normal visual inspection, Yes full ROM and Yes no lymphadenopathy Lymphatic: no lymphadenopathy noted Chest: Chest palpation & inspection: normal inspection of the chest Resp: Effort & Inspection: normal respiratory effort and able to speak in complete sentences Auscultation: clear to auscultation bilaterally, no crackles, no rales, no rhonchi and no wheezes Cardio: Rate: regular rate Rhythm: regular rhythm Heart sounds: S1 normal heart sound present and S2 normal heart sound present GI: Inspection: Yes normal to inspection Skin: General skin exam: no rashes or lesions noted Trauma: no lacerations or abrasions Wounds: no wounds Neuro: General: patient oriented x3 and moves all extremities Cranial nerves: Yes Equal, round and reactive pupils present Extrem: Other: Right Foot with tenderness palpation along the 5th metatarsal, as well as lateral malleolus and heel. No overlying erythema, warmth. Full range of motion of the ankle, strong DP pulse. General: Yes normal to inspection Right upper extremity: normal to inspection Left upper extremity: normal to inspection Right lower extremity: normal to inspection Left lower extremity: normal to inspection Course Course Course Narrative: This is a Rapid Medical Exam performed in triage by Guerline Avila PA-C. Full HPI, ROS and PE to be performed by primary ED provider. 62 yo F w/ PMHx DM, HLD, HTN, presenting to the ED c/o R ankle/foot pain x yesterday. no injury PE: limping gait, +swelling appreciated to lateral malleolus Plan: XR Medical Decision Making Medical Decision Making [facility] Narrative: This is a 62-year-old female who presents emergency department with complaints of right foot pain since yesterday. No known injury. On arrival, patient slightly hypertensive at 152/68 with a pulse of 103, all other vital signs within normal limits. She is speaking in full sentences under no acute distress. She has tenderness palpation along the lateral malleolus, heel, and 5th meta tarsal. X-rays were obtained, multiple spurs noted within the foot, discussed findings with patient. Patient discharged with Tylenol, given crutches to help with weight-bearing. Patient understands and agrees with plan. Patient stable for discharge. Differential Diagnosis Differential Diagnoses: The differential diagnosis associated with the presentation includes Arthritis, gout, sprain, strain Admission/Observation Consideration of admission/observation: Escalation of care including admission/observation considered Radiology Impression Discussion of test interpretation with radiology: I have reviewed the radiologist's reading. Radiologist Impression: XR/XR foot RT min 3V IMPRESSION: 1. No radiographic evidence of acute fracture. 2. There are small calcaneal spurs. 3. There are vascular calcifications. Dictated By: Bhavesh James MD Discharge Plan Discharge Clinical Impression: Pain in ankle, Pain, foot, Heel spur Patient Disposition: Home, Self-Care Instructions: Arthralgia (ED), Heel Spur (ED) Additional Instructions: You were seen in the emergency department due to right foot and ankle pain. Your x-ray show multiple heel spurs which can be the source of your pain. It is very important that you wear supportive shoes. Rest, ice, and take ibuprofen as needed for pain. You may follow-up with the dry placer machine operator for further recommendations to help assist with your pain. Any new or worsening symptoms occur including but limited to increased redness, swelling, fevers, chills, inability to move ankle joint, please return for re- evaluation. Prescriptions: No Action fluticasone propionate [Flonase Allergy Relief] 50 mcg/actuation spray,suspension 1 spray intranasal BID 30 Days Qty: 16 6RF Rx Instructions: administer into each nostril ezetimibe 10 mg tablet 10 mg PO DAILY 90 Days Qty: 90 3RF amitriptyline 10 mg tablet 10 mg PO BEDTIME 90 Days Qty: 90 1RF hydrocortisone [Anti-Itch (HC)] 1 % cream 1 appl topical TID PRN (Reason: skin irritation) 14 Days Qty: 28.4 0RF Ozempic 0.25 mg or 0.5 mg (2 mg/3 mL) pen injector 0.5 mg subcut QWEEK 28 Days Qty: 2.944 0RF acetaminophen 500 mg tablet 500 mg PO Q6H PRN (Reason: pain) Qty: 20 0RF (DME) FreeStyle Marysol 14 Day Sensor Kit See Rx Instructions .Route Qty: 1 0RF Rx Instructions: As directed Jardiance 10 mg tablet 10 mg PO DAILY 90 Days Qty: 90 1RF metformin 1,000 mg tablet 1,000 mg PO BID 90 Days Qty: 180 0RF glipizide 10 mg tablet 10 mg PO BID 90 Days Qty: 180 1RF Ozempic 1 mg/dose (4 mg/3 mL) pen injector 1 mg subcut QWEEK 28 Days Qty: 3 0RF FreeStyle Lite Strips Strip 1 strip miscellaneous BID 30 Days Qty: 50 11RF (DME) blood-glucose meter [FreeStyle Lite Meter] Kit See Rx Instructions .Route Qty: 1 0RF Rx Instructions: As directed (DME) lancets [FreeStyle Lancets] 28 gauge misc See Rx Instructions .ROUTE .MEDSUPPLY Qty: 100 0RF Rx Instructions: As directed Referrals: Betina Parra DPM [Physician] - Interventions: ED Discharge Assessment Last Done: 06/21/24 14:51 Discharge Date/Time: 06/21/24 14:52 Print Language: Indonesian
[2024-06-21 12:47] VITALS: BP 152/68; PULSE 103; RESP 18; TEMP 36.5; O2SAT 96; BMI 26.9
[2024-06-21 14:51] VITALS: BP 133/88; PULSE 93; RESP 14; TEMP 36.5; O2SAT 96
== END 2024-06-21 14:52 | disposition home or self-care (01) ==
PROVIDERS: Emergency Provider Emergency Medicine; PCP Internal Medicine
DX: M77.31 Calcaneal spur, right foot (principal); M25.571 Pain in right ankle and joints of right foot
CPT/HCPCS: 73610; 73630; 99283; 99284

== ENCOUNTER 2024-11-10 16:11 | Outpatient (AMB) | payer OTHER, SELFPAY ==
--- NOTE | 2024-11-10 16:14 | A.OFFPC_ITS ---
Vital Signs 11/10/24 16:18 Height 5 ft 5 in Weight 163 lb BMI 27.1 BP 120/72 Blood Pressure Location Lt brachial Position Sitting Intake Visit Reasons: dm Intake Note: Patient here for a follow up DM Architect Marine Required: No Accompanied by: Self / Same As Patient Allergies Iodinated Contrast Media [IV Dye, Iodine Containing] Allergy (Severe, Verified 11/10/24 16:28) VOMITING/SWELLING ibuprofen [From MOTRIN] Allergy (Intermediate, Verified 11/10/24 16:28) NAUSEA, stomach upset pravastatin Adverse Reaction (Intermediate, Verified 11/10/24 16:28) elevated liver enzymes Medication List - Last Reconciled 11/10/24 by Mery Garduno MD acetaminophen 500 mg PO Q6H PRN amitriptyline 10 mg PO BEDTIME 90 days blood sugar diagnostic (FreeStyle Lite Strips) 1 strip miscellaneous BID 30 days blood-glucose meter (FreeStyle Lite Meter kit) As directed ezetimibe 10 mg PO DAILY 90 days flash glucose sensor (FreeStyle Marysol 14 Day Sensor kit) As directed fluticasone propionate 50 mcg/actuation 1 spray intranasal BID glipizide 10 mg PO BID 90 days hydrocortisone 1% (Anti-Itch (hydrocortisone)) 1 appl topical TID PRN 2 weeks lancets (FreeStyle Lancets) As directed metformin 1,000 mg PO BID 90 days Tobacco use date assessed: 11/10/24 Dental Screening Dental Screen Date: 11/10/24 Did you have a dental visit in the last 12 months?: Yes Did you have a dental problem in the last 6 months where you did not have access to dental care?: No Was dental information given to patient?: Patient has dentist HPI HPI Comments History of Present Illness Details The patient is a 63-year-old female presenting with a history of diabetes mellitus type 2, hypertension and hyperlipidemia. The patient reports that she has conducted a COVID-19 test at home with a negative result. She denies any recent exacerbation of congestive symptoms. In the past, she has experienced issues with fluid retention and edema managed through medication, which now seem stable. Her current medications include Tylenol for general pain relief, Amitriptyline 10 mg nightly for insomnia and migraine prophylaxis, Atorvastatin 10 mg for hypercholesterolemia, Glipizide 10 mg twice daily, Metformin for diabetes management, and Ozempic which requires prior authorization from her health plan. Her diabetes management history includes prior use of Ozempic, with plans to restart at a lower dose due to discontinuation for an extended period. The patient's hypercholesterolemia management also includes previous use of Trulicity. She continues with these medications pending authorization. The patient exhibits medication intolerance due to allergies to contrast dye, ibuprofen, and pravastatin. [facility] Medical History Vitamin D deficiency Multinodular thyroid Poor compliance Thyroid nodule Allergic rhinitis Migraines Pure hypercholesterolemia Essential hypertension Diabetes mellitus Surgical History H/O bilateral breast reduction surgery History of removal of ovarian cyst History of parathyroidectomy Family History Father Leukemia Mother CVD (cardiovascular disease) Sister Thyroid disease Brother No problems noted. Social History Housing: Apartment Unable to assess alcohol history related to: Unknown Alcohol intake: never Patient Tobacco Use Status: Never used Tobacco e-Cigarette/Vaping Use: Never Used Second Hand Smoke Exposure: No service: No Current occupational status: unemployed Cognitive needs: No Hearing needs: No Vision needs: No Questionnaire PHQ-9 Over the last 2 weeks, how often have you been bothered by any of the following problems? 1. Little interest or pleasure in doing things: not at all 2. Feeling down, depressed, or hopeless: not at all 3. Trouble falling or staying asleep, or sleeping too much: not at all 4. Feeling tired or having little energy: not at all 5. Poor appetite or overeating: not at all 6. Feeling bad about yourself - or that you are a failure or have let yourself or your family down: not at all 7. Trouble concentrating on things, such as reading the newspaper or watching television: not at all 8. Moving or speaking so slowly that other people could have noticed. Or the opposite - being so fidgety or restless that you have been moving around a lot more than usual: not at all 9. Thoughts that you would be better off or of hurting yourself in some way: not at all Total score: 0 Depression Screening Interpretation: Negative Depression Screening Done: Yes 47044 - PHQ-9 Billing: Yes Source: Developed by Drs. Javi Farr, Radha Clements, Lemuel Mistry and colleagues, with an educational keira from [employer]. Thrive Questionnaire Date Thrive assessed: 11/10/24 I am a: Patient What is your living situation today?: I have a steady place to live Within the past 12 months, did the food you bought not last and you didn't have the money to get more?: Never true Within the past 12 months, did you worry whether your food would run out before you got money to buy more?: Never true Do you have trouble paying for medicines?: No Do you have trouble getting transportation to medical appointments?: No Do you have trouble paying your heating and electricity bill?: No Do you have trouble taking care of your child, family member or friend?: No Do you have trouble with day-to-day activities such as bathing, preparing meals, shopping, managing finances, etc.?: No Are you currently unemployed and looking for a job?: No Are you interested in more education?: No Please select the resources that you would like help with: None Currently or been in a relationship where the following occur: No concerns reported THRIVE Score: 0 AUDIT C Alcohol Use Questionnaire (AUDIT-C) 1. How often do you have a drink containing alcohol?: Never Total Score: 0 Score Reviewed/Action Taken: No KEVIN-7 AMB Questionnaire KEVIN-7 Date KEVIN - 7 assessed: 11/10/24 Feeling nervous, anxious, or on edge: 0 = Not at all Not being able to stop or control worryin = Not at all Worrying too much about different things: 0 = Not at all Trouble relaxin = Not at all Being so restless that it is hard to sit still: 0 = Not at all Becoming easily annoyed or irritable: 0 = Not at all Feeling afraid as if something awful might happen: 0 = Not at all Total KEVIN-7 score (0-4 normal; 5-9 mild; 10-14 moderate; 15-21 severe): 0 Source: Developed by Radha Andujar Kurt Kroenke and colleagues, with an educational keira from [employer]. KEVIN-7 Assessment Billing KEVIN-7 Assessment Tool: KEVIN-7 Assessment 84697 Review of Systems Const All systems reviewed & are unremarkable except as noted in HPI and below Card Denies chest pain at rest, Denies chest pain with activity, Denies edema, Denies irregular heart rhythm, Denies claudication, Denies dyspnea, Denies dyspnea on exertion, Denies orthopnea, Denies paroxysmal nocturnal dyspnea and Denies slow heart rate Resp Denies cough, Denies dyspnea and Denies dyspnea on exertion Neuro Denies lack of coordination Physical exam (Primary Care) Vital Signs: Last Vital Signs BP 120/72 11/10/24 16:18 BMI result Body Mass Index 27.1 Tobacco/Smoking Status: Tobacco use Status Tobacco use date assessed 11/10/24 11/10/24 16:21 Patient Tobacco Use Status Never used Tobacco 11/10/24 16:16 e-Cigarette/Vaping Use Never Used 11/10/24 16:16 PHQ-9: PHQ-9 Score PHQ-9: Total score 0 11/10/24 16:31 Depression Screening Interpretation: Negative Thrive Assessment: Date of Thrive Assessment Date Thrive assessed 11/10/24 11/10/24 16:24 Currently or been in a relationship where the following occur: No concerns reported Neck Neck: Yes supple Resp Effort & Inspection: normal respiratory effort Auscultation: clear to auscultation bilaterally Cardio Jugular venous distension: no JVD Rate: regular rate Rhythm: regular rhythm Heart sounds: S1 normal heart sound present and S2 normal heart sound present Extrem General: Yes full ROM Office Procedures Flu Questionnaire Does the patient have a severe egg allergy?: No Results AMB Hemoglobin A1c AMB Hemoglobin A1c 7.4 % Last Edit by JAMARCUS Becker on 11/10/24 16:3 4 Immunizations Fluarix Triv [id number] (PF) 45 mcg (15 mcg x 3)/0.5 mL IM syringe Performing Provider: Mery Garduno MD [facility] [place] [facility] Documented (not given) by: JAMARCUS Becker on 11/10/24 16:21 Reason Not Given: Received Previously Results Reviewed Results Reviewed: Laboratory Last Values Hgb A1c (Clinic) 7.4 % (4.0-6.0) H 11/10/24 16:14 Coding Level of Care Code Est Pt Level 4 (83930) Complex EM visit Add On G2211 Diagnoses Type 2 diabetes mellitus with hyperglycemia, without long-term current use of insulin E11.65 Diabetes mellitus type: type 2 Diabetes mellitus correction insulin use: without computer terminal operator use Diabetes mellitus complication status: with hyperglycemia Essential hypertension I10 Pure hypercholesterolemia E78.00 Migraine without aura and without status migrainosus, not intractable G43.009 Migraine type: without aura Status migrainosus presence: without status migrainosus Intractability: not intractable Additional Codes KEVIN-7 Assessment Billing - KEVIN-7 Assessment Tool: KEVIN-7 Assessment 60726 ([id number]) PHQ-9 - 59839 - PHQ-9 Billing: Yes ([id number]) Time Spent (min) 22 Assessment & Plan Assessment & Plan (1) Diabetes mellitus: Code(s): E11.9 - Type 2 diabetes mellitus without complications Category: Medical Qualifiers: Diabetes mellitus type: type 2 Diabetes mellitus computer terminal operator insulin use: without correction use Diabetes mellitus complication status: with hyperglycemia Qualified Code(s): E11.65 - Type 2 diabetes mellitus with hyperglycemia (2) Essential hypertension: Code(s): I10 - Essential (primary) hypertension Category: Medical (3) Pure hypercholesterolemia: Code(s): E78.00 - Pure hypercholesterolemia, unspecified Category: Medical (4) Migraines: Code(s): G43.909 - Migraine, unspecified, not intractable, without status migrainosus Category: Medical Qualifiers: Migraine type: without aura Status migrainosus presence: without status migrainosus Intractability: not intractable Qualified Code(s): G43.009 - Migraine without aura, not intractable, without status migrainosus Plan - Continue current medications for diabetes and hypercholesterolemia management pending prior authorization. - Re-implement Ozempic at a lower dosage due to previously halted usage. - Monitor congestive heart failure symptoms and manage with existing medication regimen. - Evaluate cholesterol management through regular lab testing. - Maintain allergy precautions for contrast dye, ibuprofen, and pravastatin. Patient was informed and verbally consented to the use of an ambient scribe for clinic note documentation during this visit. I discussed with the patient her current chronic disease management, including the ongoing requirement for medication adjustments due to her allergies. We reviewed the need for prior authorization for some medications, including Jardiance, necessary for optimal diabetes management. I emphasized the importance of restarting Ozempic at a lower dosage based on her history. The patient confirmed understanding of her treatment plan, and we agreed on the importance of maintaining her lifestyle modifications to complement the medication regimen. We discussed the importance of regular laboratory checks to monitor her cholesterol and diabetic status, and the patient acknowledged the need to adhere to them. Orders: Orders Influenza [id number] Immunization Today Z23 - Encounter for immunization AMB Hemoglobin A1c Today E11.65 - Type 2 diabetes mellitus with hyperglycemia Lipid Panel Today E78.5 - Hyperlipidemia, unspecified Vitamin D 25-OH Total Today E55.9 - Vitamin D deficiency, unspecified Microalbumin, Random (w Creat) Today R80.9 - Proteinuria, unspecified Comprehensive Met. Panel Today E11.65 - Type 2 diabetes mellitus with hyperglycemia Medications: New semaglutide (Ozempic) for 4 weeks 0.25 mg (0.368 mL) subcut QWEEK 1.472 mL 0RF 4 weeks E11.65 - Type 2 diabetes mellitus with hyperglycemia Patient Instructions: - Continue prescribed medication regimen and report any adverse effects. - Schedule and complete lab tests for cholesterol monitoring. - Resume Ozempic at lower dose as instructed and monitor blood sugar levels. - Inform the healthcare team of any new or worsening symptoms immediately. - Maintain regular follow-ups for continued management of chronic conditions.
[2024-11-10 16:18] VITALS: BP 120/72; BMI 27.1
== END 2024-11-10 16:36 | disposition home or self-care (01) ==
PROVIDERS: PCP Internal Medicine; Visit Provider Internal Medicine
DX: E11.65 Type 2 diabetes mellitus with hyperglycemia (principal); I10 Essential (primary) hypertension; E78.00 Pure hypercholesterolemia, unspecified; G43.009 Migraine without aura, not intractable, without status migrainosus; Z23 Encounter for immunization

== ENCOUNTER → 2024-11-10 16:11 | Outpatient (BNVA) | payer OTHER, SELFPAY | PROVIDERS: PCP Internal Medicine; Visit Provider Internal Medicine | DX: E11.65 Type 2 diabetes mellitus with hyperglycemia (principal); I10 Essential (primary) hypertension; E78.5 Hyperlipidemia, unspecified; E78.00 Pure hypercholesterolemia, unspecified; G43.009 Migraine without aura, not intractable, without status migrainosus; Z79.899 Other long term (current) drug therapy | CPT/HCPCS: 83036; 90471; 96127; 99212 ==

== ENCOUNTER 2024-12-12 08:43 | Outpatient (REF) | payer OTHER, SELFPAY ==
--- OUTSIDE RECORDS SUMMARY | 2024-12-12 08:47 | XMS_ITS | Clinical Summary ---
Author Organization [facility] Address [address] [place] [address] Care Team Providers Care Administrative Appeals Tribunal Member Name Role Phone Mery Garduno MD Primary Care Provider [phone] Allergies Active Allergy Reactions Criticality Noted Date Comments Ibuprofen Diarrhea,Weakness 04/05/2017 Iodine 04/10/2018 Medications Medication Sig Dispensed Refills Start Date End Date Status cholecalciferol (VITAMIN D-3) 50 mcg (2,000 unit) capsule Take 1 capsule (2,000 Units total) by mouth 1 (one) time each day. 04/27/2019 Active metFORMIN (GLUCOPHAGE) 1,000 mg tablet Take 1 tablet (1,000 mg total) by mouth 2 (two) times a day with meals. Active dulaglutide (Trulicity) 0.75 mg/0.5 mL pen injector injection Inject into the skin. Active Active Problems Problem Noted Date Diagnosed Date Diabetes mellitus, type 2 04/13/2019 Surgical History Surgery Date Site/Laterality Comments OVARIAN CYST REMOVAL Right PROCEDURE: UT OVARIAN CYSTECTOMY UNI/BI BREAST SURGERY PROCEDURE: UT UNLISTED PROCEDURE BREAST; COMMENT: bilateral breast reduction OTHER SURGICAL HISTORY PROCEDURE: HISTORICAL PARATHYROID SURGERY Medical History Medical History Date Comments Asthma DX:Asthma Diabetes mellitus, type 2 ([facility]/HCC) 04/13/2019 DX:Diabetes mellitus, type 2 (HCC) Family History Medical History Relation Name Comments No Known Problems Brother 1 x Diabetes Brother 2 Diabetes Brother 3 No Known Problems Brother 4 Diabetes Father Other cancer Father leukemia Diabetes Mother No Known Problems Sister 1 Diabetes Sister 2 Diabetes Sister 3 No Known Problems Sister 4 Breast cancer Neg Hx Colon cancer Neg Hx Ovarian cancer Neg Hx Prostate cancer Neg Hx Uterine cancer Neg Hx Relation Name Status Comments Brother 1 x Alive Brother 2 Alive Brother 3 Alive Brother 4 Alive Father Mother Sister 1 Alive Sister 2 Alive Sister 3 Alive Sister 4 Alive Social History Tobacco Use Types Packs/Day Years Used Date Smoking Tobacco: Never Smokeless Tobacco: Never Alcohol Use Standard Drinks/Week Comments No 0 (1 standard drink = 0.6 oz pur e alcohol) Sex and Gender Information Value Date Recorded Sex Assigned at Not on file Gender Identity Not on file Sexual Orientation Not on file Obstetrics History Plan of Treatment Upcoming Encounters Date Type Department Care Team (Late st Contact Info) Description 02/26/2025 9:45 AM EDT Office Visit Obstetrics & Gynecology - [address] [phone] Grace Chatterjee, CNM [address] [place] [address] Health Maintenance Due Date Last Done Comments Breast Cancer Screening 08/12/1963 Diabetes: Annual GFR (Glomerular Filtration Rate) 08/12/1963 Pneumococcal Vaccine: Pediatrics (0 to 5 Years) and At-Risk Patients (6 to 64 Years) (1 of 2 - PCV) 08/12/1969 Diabetes: Annual Foot Exam 08/12/1973 Diabetes: Annual Retina Eye Exam 08/12/1973 DTaP,Tdap,and Td Vaccines (1 - Tdap) 08/12/1982 Zoster Vaccines (1 of 2) 08/12/2013 Cholesterol Screening (Lipid Panel) 10/03/2022 Colorectal Cancer Screening: Colonoscopy 10/03/2022 Depression Screening 10/03/2022 04/13/2019 Social Influencers of Health Screening 10/03/2022 Diabetes: Annual Urine Albumin-Creatinine Ratio (uACR) 10/11/2022 Diabetes: Blood Sugar Contro l Test (HGBA1C) 10/11/2022 Cervical Cancer Screening: P ap Smear 06/27/2024 06/27/2021, 04/10/2018, 04/10/2018 COVID-19 Vaccine ( - 2023-2 5 season) 2024 Influenza Vaccine (#1) 2024 RSV Immunization Patients 60 + Years Old (1 - 1-dose 75+ series) 08/12/2038 Hepatitis C Screening Completed 04/05/2017 HIV Screening Completed 04/10/2018 HIB Vaccines Aged Out No longer eligi ble based on patient's age to complete this topic HPV Vaccines Aged Out No longer eligi ble based on patient's age to complete this topic Hepatitis A Vaccines Aged Out No long er eligible based on patient's age to complete this topic Hepatitis B Vaccines Aged Out No long er eligible based on patient's age to complete this topic IPV Vaccines Aged Out No longer eligi ble based on patient's age to complete this topic MMR Vaccines Aged Out No longer eligi ble based on patient's age to complete this topic Meningococcal ACWY Vaccine Aged Out N o longer eligible based on patient's age to complete this topic RSV Immunization Patients Under 20 months Aged Out No longer eligible b ased on patient's age to complete this topic Varicella Vaccines Aged Out No longer eligible based on patient's age to complete this topic Procedures Procedure Name Priority Date/Time Associated Diagnosis Comments PAP SMEAR Routine 06/27/2021 DEPRESSION SCREENING Routine 04/13/2019 HIV SCREENING Routine 04/10/2018 HEPATITIS C SCREENING Routine 04/05/2017 from Last 3 Months or Most Recently Relevant to Health Maintenance Results * Pap smear (06/27/2021) 06/27/2021 Narrative HISTORICAL TESTING LAB RESULTING AGENCY - 07/07/2021 7:40 AM EDT [id number] THINPREP PAP, IMAGED: NEGATIVE FOR SQUAMOUS INTRAEPITHELIAL LESION AND MALIGNANCY . ATROPHY. ANGIE MOSLEY(ASCP) (CASE ELECTRONICALLY SIGNED 07 06 2021) RESULT OF APTIMA HIGH RISK HPV ASSAY: HIGH RISK HPV: ??NEGATIVE (SEROTYPES 16,18,31,33,35,39,45,51,52,56,58,59,66,68) COMPLETED ON 2021-06-30 ADEQUACY: SATISFACTORY . SOURCE: THINPREP PAP HPV ANY DX: ??REFLEX 16 AND 18, CERVICAL, IMAGED CLINICAL INFORMATION: HPV ANY DIAGNOSIS. MENOPAUSE, PAP HX NEG, 2015, Z12.4 Grace Chatterjee CN LAB CYTOLOGY ORDERAB LES HISTORICAL TESTING LAB RESULTING AGENCY * Depression Screening (04/13/2019) Depression Screening abstracted Historical Provider [facility] * HIV Screening (04/10/2018) HIV Screening abstracted Historical Provider [facility] * Hepatitis C Screening (04/05/2017) Hepatitis C Screening abstracted Historical Provider [facility] from Last 3 Months or Most Recently Relevant to Health Maintenance Care Teams Administrative Appeals Tribunal Member Relationship Specialty Start Date End Date Mery Garduno MD [address] [place] [address] , [address] [facility]ician [facility] D/B/A: [facility] VERNON Baeza PCP - General Internal Medicine 04/05/17
[2024-12-12 11:31] LABS: Erythrocyte Sedimentation Rate 22 MM/HR (0-20)
[2024-12-12 11:37] LABS: Creatinine Urine 79.13 mg/dL; Microalbum/Creatinine Ratio Ur 15.1 ug/mg cr (<30)
[2024-12-12 11:39] LABS: Alanine Aminotransferase 52 U/L (0-31); Albumin Level 4.3 g/dL (3.5-5.0); Alkaline Phosphatase 56 U/L (39-117); Anion Gap 13 (12-20); Aspartate Amino Transferase 33 U/L (5-31); Bilirubin Total 0.6 mg/dL (0.0-1.0); Blood Urea Nitrogen 16 mg/dL (9-16); C Reactive Protein 0.23 mg/dL (< or = 0.50); Calcium 9.4 mg/dL (8.4-10.2); Carbon Dioxide 24 mmol/L (22-29); Chloride 107 mmol/L (96-108); Cholesterol 183 mg/dL (<200); Estimated Glomerular Filt Rate > 60; Glucose Random 177 mg/dL (60-115); HDL Cholesterol 39 mg/dL (>40); LDL Cholesterol Calculated 106 mg/dL (<100); Potassium 4.3 mmol/L (3.3-5.1); Sodium 140 mmol/L (135-145); Total Protein 7.6 g/dL (6.5-8.0); Triglycerides 192 mg/dL (<150)
[2024-12-12 12:05] LABS: Vitamin D 25-OH Total 65.1 ng/mL (>30)
== END 2024-12-12 08:44 | disposition home or self-care (01) ==
LOC: HO.LAB 08:43
PROVIDERS: PCP Internal Medicine; Visit Provider Optometrist
DX: E78.5 Hyperlipidemia, unspecified (principal); R80.9 Proteinuria, unspecified; E11.65 Type 2 diabetes mellitus with hyperglycemia; E55.9 Vitamin D deficiency, unspecified; H53.132 Sudden visual loss, left eye
CPT/HCPCS: 36415; 80053; 80061; 82043; 82306; 82570; 85652; 86140

== ENCOUNTER 2025-02-08 17:04 | Outpatient (AMB) | payer OTHER, SELFPAY ==
--- NOTE | 2025-02-08 17:12 | MHC.PC.OV ---
Vital Signs 02/08/25 17:13 02/08/25 17:17 Height 5 ft 5 in 5 ft 5 in Weight 165 lb 163 lb 0.016 oz BMI 27.5 27.1 BP 126/72 Blood Pressure Location Lt brachial Position Sitting Intake Visit Reasons: PE Intake Note: Patient here for a physical exam Equipment Sterilizer Required: Yes Equipment Sterilizer Language: Coal Miner Name: Mery Garduno MD Information Interpreted: non-clinical & clinical Accompanied by: Self / Same As Patient Allergies Iodinated Contrast Media [IV Dye, Iodine Containing] Allergy (Severe, Verified 02/08/25 17:21) VOMITING/SWELLING ibuprofen [From MOTRIN] Allergy (Intermediate, Verified 02/08/25 17:21) NAUSEA, stomach upset pravastatin Adverse Reaction (Intermediate, Verified 02/08/25 17:21) elevated liver enzymes Medication List - Last Reconciled 02/08/25 by Mery Garduno MD acetaminophen 500 mg PO Q6H PRN amitriptyline 10 mg PO BEDTIME 90 days blood sugar diagnostic (FreeStyle Lite Strips) 1 strip miscellaneous BID 30 days blood-glucose meter (FreeStyle Lite Meter kit) As directed ezetimibe 10 mg PO DAILY 90 days flash glucose sensor (FreeStyle Marysol 14 Day Sensor kit) As directed fluticasone propionate 50 mcg/actuation 1 spray intranasal BID glipizide 10 mg PO BID 90 days hydrocortisone 1% (Anti-Itch (hydrocortisone)) 1 appl topical TID PRN 2 weeks lancets (FreeStyle Lancets) As directed metformin 1,000 mg PO BID 90 days semaglutide (Ozempic) 1 mg (0.75 mL) subcut QWEEK 4 weeks Tobacco use date assessed: 11/10/24 Dental Screening Dental Screen Date: 11/10/24 HPI HPI Comments History of Present Illness Details The patient is a 63-year-old female presenting for her physical exam. Her Type 2 Diabetes Mellitus has shown signs of improvement, with a reduced A1c level at 7.7. The patient currently adheres to a regimen of Glipizide, Metformin, and Ozempic, with a recent increase to a 2 mg dosage of Ozempic, which she reports tolerating well. She further reports ongoing management of Moderate Non-Proliferative Diabetic Retinopathy in her left eye under the care of a retina specialist, with regular monthly visits. The onset of visual complications occurred in August, leading to upcoming specialist appointments, demonstrating an already active involvement in managing this condition. - Mammography recommended in June - Tetanus booster advised for 2025 - Colonoscopy last conducted in 2015, next due in 2025 [facility] Medical History Vitamin D deficiency Multinodular thyroid Poor compliance Thyroid nodule Allergic rhinitis Migraines Pure hypercholesterolemia Essential hypertension Diabetes mellitus Surgical History H/O bilateral breast reduction surgery History of removal of ovarian cyst History of parathyroidectomy Family History Father Leukemia Mother CVD (cardiovascular disease) Sister Thyroid disease Brother No problems noted. Social History Housing: Apartment Unable to assess alcohol history related to: Unknown Alcohol intake: never Patient Tobacco Use Status: Never used Tobacco e-Cigarette/Vaping Use: Never Used Second Hand Smoke Exposure: No service: No Current occupational status: unemployed Cognitive needs: No Hearing needs: No Vision needs: No Questionnaire PHQ-9 Over the last 2 weeks, how often have you been bothered by any of the following problems? 1. Little interest or pleasure in doing things: not at all 2. Feeling down, depressed, or hopeless: not at all 3. Trouble falling or staying asleep, or sleeping too much: not at all 4. Feeling tired or having little energy: not at all 5. Poor appetite or overeating: not at all 6. Feeling bad about yourself - or that you are a failure or have let yourself or your family down: not at all 7. Trouble concentrating on things, such as reading the newspaper or watching television: not at all 8. Moving or speaking so slowly that other people could have noticed. Or the opposite - being so fidgety or restless that you have been moving around a lot more than usual: not at all 9. Thoughts that you would be better off or of hurting yourself in some way: not at all Total score: 0 Depression Screening Interpretation: Negative Depression Screening Done: Yes 61563 - PHQ-9 Billing: Yes Source: Developed by Drs. Javi Farr, Radha Clements, Lemuel Mistry and colleagues, with an educational keira from [employer]. Thrive Questionnaire Date Thrive assessed: 11/10/24 I am a: Patient What is your living situation today?: I have a steady place to live Within the past 12 months, did the food you bought not last and you didn't have the money to get more?: Never true Within the past 12 months, did you worry whether your food would run out before you got money to buy more?: Never true Do you have trouble paying for medicines?: No Do you have trouble getting transportation to medical appointments?: No Do you have trouble paying your heating and electricity bill?: No Do you have trouble taking care of your child, family member or friend?: No Do you have trouble with day-to-day activities such as bathing, preparing meals, shopping, managing finances, etc.?: No Are you currently unemployed and looking for a job?: No Are you interested in more education?: No Please select the resources that you would like help with: None Currently or been in a relationship where the following occur: No concerns reported THRIVE Score: 0 AUDIT C Alcohol Use Questionnaire (AUDIT-C) 1. How often do you have a drink containing alcohol?: Never Total Score: 0 Score Reviewed/Action Taken: No KEVIN-7 AMB Questionnaire KEVIN-7 Date KEVIN - 7 assessed: 11/10/24 Feeling nervous, anxious, or on edge: 0 = Not at all Not being able to stop or control worryin = Not at all Worrying too much about different things: 0 = Not at all Trouble relaxin = Not at all Being so restless that it is hard to sit still: 0 = Not at all Becoming easily annoyed or irritable: 0 = Not at all Feeling afraid as if something awful might happen: 0 = Not at all Total KEVIN-7 score (0-4 normal; 5-9 mild; 10-14 moderate; 15-21 severe): 0 Source: Developed by Drs. Javi Farr, Lemuel Wang and colleagues, with an educational keira from [employer]. KEVIN-7 Assessment Billing KEVIN-7 Assessment Tool: KEVIN-7 Assessment 92936 Review of Systems Const All systems reviewed & are unremarkable except as noted in HPI and below Card Denies chest pain at rest, Denies chest pain with activity, Denies edema, Denies irregular heart rhythm, Denies claudication, Denies dyspnea, Denies dyspnea on exertion, Denies orthopnea, Denies paroxysmal nocturnal dyspnea and Denies slow heart rate Resp Denies cough, Denies dyspnea and Denies dyspnea on exertion GI Denies abdominal pain, Denies change in bowel habits, Denies excessive flatus, Denies nausea and Denies vomiting Denies urinary incontinence, Denies urinary hesitancy and Denies urinary urgency Musc Denies atrophy, Denies deformity and Denies limited range of motion Physical exam (Primary Care) Vital Signs: Last Vital Signs BP 126/72 02/08/25 17:17 BMI result Body Mass Index 27.1 Tobacco/Smoking Status: Tobacco use Status Tobacco use date assessed 11/10/24 02/08/25 17:24 Patient Tobacco Use Status Never used Tobacco 02/08/25 17:24 e-Cigarette/Vaping Use Never Used 02/08/25 17:24 PHQ-9: PHQ-9 Score PHQ-9: Total score 0 02/08/25 17:24 Depression Screening Interpretation: Negative Thrive Assessment: Date of Thrive Assessment Date Thrive assessed 11/10/24 02/08/25 17:24 Currently or been in a relationship where the following occur: No concerns reported [facility] Head: Yes normal to inspection, Yes normocephalic and Yes atraumatic Ears: external ears normal Eyes General: appearance normal, both eyes and all related structures Eyelids: Yes eyelids normal Conjunctivae: conjunctivae normal Neck Neck: Yes normal visual inspection and Yes supple Resp Effort & Inspection: normal respiratory effort Auscultation: clear to auscultation bilaterally Cardio Jugular venous distension: no JVD Rate: regular rate Rhythm: regular rhythm Heart sounds: S1 normal heart sound present and S2 normal heart sound present GI Inspection: Yes normal to inspection Palpation (GI): Soft to palpation and nontender Auscultation: normal bowel sounds Skin General skin exam: no rashes or lesions noted Neuro General: no focal motor deficits Extrem General: Yes full ROM Psych Appearance: grossly normal Results AMB Hemoglobin A1c AMB Hemoglobin A1c 7.7 % Last Edit by JAMARCUS Becker on 02/08/25 17:27 Results Reviewed Results Reviewed: Laboratory Last Values Hgb A1c (Clinic) 7.7 % (4.0-6.0) H 02/08/25 17:12 Coding Level of Care Code Est Pt Prev Care 40-64y(61750) Diagnoses Physical exam Z00.00 Type 2 diabetes mellitus with hyperglycemia, without long-term current use of insulin E11.65 Diabetes mellitus type: type 2 Diabetes mellitus snf insulin use: without snf use Diabetes mellitus complication status: with hyperglycemia Additional Codes KEVIN-7 Assessment Billing - KEVIN-7 Assessment Tool: KEVIN-7 Assessment [id number] ([id number]) PHQ-9 - 06674 - PHQ-9 Billing: Yes ([id number]) Time Spent (min) 31 Assessment & Plan Assessment & Plan (1) Physical exam: Code(s): Z00.00 - Encounter for general adult medical examination without abnormal findings Category: Medical (2) Diabetes mellitus: Code(s): E11.9 - Type 2 diabetes mellitus without complications Category: Medical Qualifiers: Diabetes mellitus type: type 2 Diabetes mellitus extermination inspector insulin use: without snf use Diabetes mellitus complication status: with hyperglycemia Qualified Code(s): E11.65 - Type 2 diabetes mellitus with hyperglycemia Plan We discussed the management strategies for the patient's Type 2 Diabetes Mellitus and diabetic retinopathy during this visit. Her diabetes treatment involves Glipizide, Metformin, and a dosage increase of Ozempic to 2 mg. We emphasized maintaining rigorous follow-up with her retina specialist for retinopathy. For health maintenance, we reviewed the due dates for her mammogram and tetanus booster, ensuring she remains up to date with preventive care screenings. Patient was informed and verbally consented to the use of an ambient scribe for clinic note documentation during this visit. Today, I reviewed with the patient her current diabetes management plan and the importance of maintaining her A1c level to improve her diabetes control. I highlighted the necessity of regular eye check-ups for her diabetic retinopathy and ensured she understood her medication adjustments. We discussed the timeline for her next mammography and the tetanus booster to promote her ongoing health maintenance. Follow-up arrangements include maintaining her current medication regimen and addressing any changes in her condition or medication tolerance. Orders: Orders AMB Hemoglobin A1c Today E11.65 - Type 2 diabetes mellitus with hyperglycemia Vitamin D 25-OH Total 4 Months E55.9 - Vitamin D deficiency, unspecified Comprehensive Stanley. Panel Fast 4 Months E11.65 - Type 2 diabetes mellitus with hyperglycemia Lipid Panel 4 Months E78.5 - Hyperlipidemia, unspecified Microalbumin, Random (w Creat) 4 Months R80.9 - Proteinuria, unspecified Patient Instructions: - Continue your current diabetes medications: Glipizide, Metformin, and Ozempic. - Schedule your mammogram for June. - Plan for your next tetanus booster in 2025. - Attend your monthly eye appointments with your retina specialist. - Monitor your blood sugar levels regularly and report any significant changes. - Follow up if you experience new or worsening symptoms.
[2025-02-08 17:13] VITALS: BMI 27.5
[2025-02-08 17:17] VITALS: BP 126/72; BMI 27.1
--- OUTSIDE RECORDS SUMMARY | 2025-02-08 18:52 | XMS_ITS | Clinical Summary ---
Author Organization [facility] Address [address] [place] [address] Care Team Providers Care Bicycle Rental Clerk Name Role Phone Mery Garduno MD Primary Care Provider [phone] Allergies Active Allergy Reactions Criticality Noted Date Comments Ibuprofen Diarrhea,Weakness 04/05/2017 Iodine 04/10/2018 Medications cholecalciferol (VITAMIN D-3) 50 mcg (2,000 unit) [...] Site/Laterality Comments OVARIAN CYST REMOVAL Right PROCEDURE: RI OVARIAN CYSTECTOMY UNI/BI BREAST SURGERY PROCEDURE: RI UNLISTED PROCEDURE BREAST; COMMENT: bilateral breast reduction OTHER SURGICAL HISTORY PROCEDURE: HISTORICAL PARATHYROID SURGERY Medical History Medical History Date Comments Asthma DX:Asthma Diabetes mellitus, type 2 ([facility]/HCC) 04/13/2019 DX:Diabetes mellitus, type 2 (HCC) Family [...] drink = 0.6 oz pur e alcohol) Comments Unknown Sex and Gender Information Value Date Recorded Sex Assigned at Not on file Legal Sex Female 4:31 PM EST Gender Identity Not on file Sexual Orientation Not on file Obstetrics History Plan of Treatment Upcoming Encounters Date Type Department Care Team (Late st Contact Info) Description 02/26/2025 9:45 AM EDT Office Visit Obstetrics & Gynecology - [address] [phone] Grace Chatterjee, CNM [address] [place] [address] Health Maintenance Due Date Last Done Comments Breast Cancer Screening 08/12/1963 Diabetes: Annual GFR (Glomerular Filtration Rate) 08/12/1963 Diabetes: Annual Foot Exam 08/12/1973 Diabetes: Annual Retina Eye Exam 08/12/1973 DTaP,Tdap,and Td Vaccines (1 - Tdap) 08/12/1982 Pneumococcal Vaccine: 50+ Years (1 of 2 - PCV) 08/12/1982 Pneumococcal Vaccine: Pediatrics (0 to 5 Years) and At-Risk Patients (6 to 64 Years) (1 of 2 - PCV) 08/12/1982 Zoster Vaccines (1 of 2) 08/12/2013 [...] 2024 Influenza Vaccine (#1) 2024 RSV Immunization Adult Patients (1 - 1-dose 75+ series) 08/12/2038 Hepatitis [...] patient's age to complete this topic Meningococcal B Vaccine Aged Out No l onger eligible based on patient's age to complete [...] RESULTING AGENCY - 07/07/2021 7:40 AM EDT [id number] THINPREP PAP, IMAGED: NEGATIVE FOR SQUAMOUS INTRAEPITHELIAL [...] PAP HX NEG, 2015, Z12.4 Grace Chatterjee [facility] LAB CYTOLOGY ORDERABLES Final Result HISTORICAL TESTING LAB RESULTING AGENCY * Depression Screening (04/13/2019) Depression Screening abstracted Historical Provider HEALTH MAINTENANCE Final Result * HIV Screening (04/10/2018) [facility] HIV Screening abstracted Historical Provider HEALTH MAINTENANCE Final Result * Hepatitis C Screening (04/05/2017) Pathologist [facility] Hepatitis C Screening abstracted Historical Provider HEALTH MAINTENANCE Final Result from Last 3 Months or Most Recently Relevant to Health Maintenance [place] [address] [place] [address] HEALTH PLAN Care Teams Bicycle Rental Clerk Relationship Specialty Start Date End Date Mery Garduno MD [address] [place] [address] , [facility] [address] [facility] D/B/A: [facility] [place], [place] PCP - General Internal Medicine 04/05/17
== END 2025-02-08 17:36 | disposition home or self-care (01) ==
LOC: HO.HMCH 17:04
PROVIDERS: PCP Internal Medicine; Visit Provider Internal Medicine
DX: Z00.00 Encounter for general adult medical examination without abnormal findings (principal); E11.65 Type 2 diabetes mellitus with hyperglycemia

== ENCOUNTER → 2025-02-08 17:04 | Outpatient (BNVA) | payer OTHER, SELFPAY | PROVIDERS: PCP Internal Medicine; Visit Provider Internal Medicine | DX: Z00.00 Encounter for general adult medical examination without abnormal findings (principal); E11.319 Type 2 diabetes mellitus with unspecified diabetic retinopathy without macular edema; E11.65 Type 2 diabetes mellitus with hyperglycemia; E78.5 Hyperlipidemia, unspecified; R80.9 Proteinuria, unspecified | CPT/HCPCS: 83036; 96127; 99396 ==

== ENCOUNTER 2025-06-10 09:23 | Outpatient (REF) | payer OTHER, SELFPAY ==
--- OUTSIDE RECORDS SUMMARY | 2025-06-10 09:47 | XMS_ITS | Clinical Summary ---
Author Organization [facility] Address [address] [place] [address] Phone Care Team Providers Care Sailboat Captain Name Role Phone Mery Garduno MD Primary Care Provider [phone] Allergies Active Allergy Reactions Criticality Noted Date Comments Ibuprofen Diarrhea,Weakness 04/05/2017 Iodine 04/10/2018 [place] Oil 02/26/2025 Medications cholecalcifero l (VITAMIN D-3) 50 mcg (2,000 unit) capsule Take 1 capsule (2,000 Units total) by mouth 1 (one) time each day. 9 Active metFORMIN (GLUCOPHAGE) 1,000 mg tablet Take 1 tablet (1,000 mg total) by mouth 2 (two) times a day with meals. Active dulaglutide (Trulicity) 0.75 mg/0.5 mL pen injector injection Inject into the skin. Active Ozempic 1 mg/dose (4 mg/3 mL) injection pen 1 MG (0.75 ML) SUBCUTANEOUSLY EVERY WEEK FOR 4 WEEKS 5 Active glipiZIDE (GLUCOTROL) 10 mg tablet Take 1 tablet (10 mg total) by mouth 2 (two) times a day. 5 Active FreeStyle [place] Lite monitoring kit See administration instructions. 4 Active blood sugar diagnostic (FreeStyle Lite Strips) test strip USE TO TEST TWICE DAILY DIRECTED 4 Active amitriptyline (ELAVIL) 10 mg tablet Take 1 tablet (10 mg total) by mouth at bedtime. 5 Active Active Problems Problem Noted Date Diagnosed Date Diabetes mellitus, type 2 (CMS/HCC V24, CMS/HCC V28) 04/13/2019 Surgical History Surgery Date Site/Laterality Comments OVARIAN CYST REMOVAL Right PROCEDURE: [place] OVARIAN CYSTECTOMY UNI/BI BREAST SURGERY PROCEDURE: [place] UNLISTED PROCEDURE BREAST; COMMENT: bilateral breast reduction OTHER SURGICAL HISTORY PROCEDURE: HISTORICAL PARATHYROID SURGERY Medical History Medical History Date Comments Asthma DX:Asthma Diabetes mellitus, type 2 (C MS/HCC V24, [facility]/HCC V28) 04/13/2019 DX:Diabetes mellitus, type 2 (HCC) Family History Medical History Relation Name Comments No Known Problems Brother 1 Diabetes Brother 2 Diabetes Brother 3 No Known Problems Brother 4 Diabetes Father Other cancer Father leukemia Diabetes Mother No Known Problems Sister 1 Diabetes Sister 2 Diabetes Sister 3 Breast cancer Sister 4 Colon cancer Neg Hx Ovarian cancer Neg Hx Prostate cancer Neg Hx Uterine cancer Neg Hx Relation Name Status Comments Brother 1 Alive Brother 2 Alive Brother 3 Alive Brother 4 Alive Father Mother Sister 1 Alive Sister 2 Alive Sister 3 Alive Sister 4 Alive Social History Tobacco Use Types Packs/Day Years Used Date Smoking Tobacco: Never Smokeless Tobacco: Never Alcohol Use Standard Drinks/Week Comments No 0 (1 standard drink = 0.6 oz pur e alcohol) Comments No Sex and Gender Information Value Date Recorded Sex Assigned at Not on file Legal Sex Female 4:31 PM EST Gender Identity Not on file Sexual Orientation Not on file Occupation Industry Job Start Date Job End Date [employer] pre- K Not on file Not on vasiliy e Not on file Obstetrics History Para Term AB IAB SAB Ectopic Multiple Livin g Live Births 0 0 0 0 0 0 0 0 0 0 0 Last Filed Vital Signs Vital Sign Reading Time Taken Comments Blood Pressure 120/75 02/26/2025 9:43 AM EDT Pulse 73 02/26/2025 9:43 AM EDT Temperature - - Respiratory Rate - - Oxygen Saturation - - Inhaled Oxygen Concentration - - Weight 74.4 kg (164 lb) 02/26/2025 9:43 AM EDT Height 165.1 cm (5' 5 ) 02/26/2025 9:43 AM EDT Body Mass Index 27.29 02/26/2025 9:43 AM EDT Plan of Treatment Health Maintenance Due Date Last Done Comments Diabetes: Annual GFR (Glomerular Filtration Rate) 08/12/1963 Diabetes: Annual Foot Exam 08/12/1973 Diabetes: Annual Retina Eye Exam 08/12/1973 DTaP,Tdap,and Td Vaccines (1 - Tdap) 08/12/1982 Pneumococcal Vaccine: 50+ Years (1 of 2 - PCV) 08/12/1982 Zoster Vaccines (1 of 2) 08/12/2013 Cholesterol Screening (Lipid Panel) 10/03/2022 Colorectal Cancer Screening: Colonoscopy 10/03/2022 Social Influencers of Health Screening 10/03/2022 Diabetes: Annual Urine Albumin-Creatinine Ratio (uACR) 10/11/2022 Diabetes: Blood Sugar Contro l Test (HGBA1C) 10/11/2022 COVID-19 Vaccine ( - 2023-2 5 season) 2024 Depression Screening 11/04/2024 04/13/2019 Influenza Vaccine (#1) 2025 , 07/26/2023 Breast Cancer Screening 06/10/2026 06/10/2024 Cervical Cancer Screening: HPV 02/26/2030 0 02/26/2025, 04/10/2018 RSV Immunization Adult Patients (1 - 1-dose [...] Procedure Name Priority Date/Time Associated Diagnosis Comments HPV WITH REFLEX GENOTYPE Routine 02/26/2025 10:05 AM EDT Encounter for well woman exam with routine gynecological exam Screening for cervical cancer Post-menopausal MG MAMMO DIGITAL DIAGNOSTIC BILAT Routine 06/10/2024 2:49 PM EDT DEPRESSION SCREENING Routine 04/13/2019 HIV SCREENING Routine 04/10/2018 HEPATITIS C SCREENING Routine 04/05/2017 from Last 3 Months or Most Recently Relevant to Health Maintenance Results * HPV with reflex genotype (02/26/2025 10:05 AM EDT) [facility] HPV Negative Negative LAB MICROBIOLOGY METHOD 03/01/2025 1:07 PM EDT [facility] Brushing/Spatula Cervix uteri structure / Unknown 02/26/2025 10:05 AM EDT 03/01/2025 6:28 AM EDT [facility] MOLECULAR DIAGNOSTICS ORD ERABLES Final Result [facility] [address] [place] [address], [place] [phone] * MG Mammo Digital Diagnostic bilat (06/10/2024 2:49 PM EDT) Anatomical Region Laterality Modality Breast Bilateral Mammography Historical Provider IMG BI PROCEDURES Final R esult * Depression Screening (04/13/2019) Pathologist [facility] Depression Screening abstracted Historical Provider HEALTH MAINTENANCE Final Result * HIV Screening (04/10/2018) Pathologist [facility] HIV Screening abstracted Historical Provider HEALTH MAINTENANCE Final Result * Hepatitis C Screening (04/05/2017) [facility] Hepatitis C Screening abstracted Historical Provider HEALTH MAINTENANCE Final Result from Last 3 Months or Most Recently Relevant to Health Maintenance Insurance [facility] Care Teams Sailboat Captain Relationship Specialty Start Date End Date Mery Garduno MD [address] [place] [address] , [address] [facility] D[facility]A: [facility] [place], [place] PCP - General Internal Medicine 04/05/17
--- OUTSIDE RECORDS SUMMARY | 2025-06-10 09:47 | XMS_ITS | Patient Health Record ---
Author Organization [facility] Address [address] [place] [address] Care Team Providers Care Card Hand Name Role Phone Mery Guerrero Primary Care Provider Attila Hutson Jr Unavailable [phone] Allergies Allergen (clinical drug ingredient) Drug/Non Drug Allergy documented on EMR Reaction Allergy Type Onset Date Status Motrin Unknown Drug Allergy Active Iodine Unknown Drug Allergy Active Reason For Referral No Information Medications Medication SIG (Take, Route, Frequency, Duration) Notes Start Date End Date Status Pravastatin Sodium 20 MG 1 tablet Orally Once a day Active Loratadine 10 MG 1 capsule Orally Once a day Active Trulicity Active Vitamin D 2000 UNIT Orally Active metFORMIN HCl 1000 MG 1 tablet with meal s Orally Once a day Active glipiZIDE 10 MG 1 tablet Orally Once a day Active Immunizations Vaccine Route Administration Date Status Comme nts Influenza Unknown 10/01/2018 Administered Problems Problem Type SNOMED Code ICD Code Onset Dates Problem Status W/U Status Risk Notes Problem 416373035 Fatty liver (K76.0) Active confirmed Problem [id number] Elevated liver function tests (R94.5) Active confirmed Problem 428200946 Gallbladder polyp (K82.4) Active confirmed Plan Of Treatment Future Test Test Name Order Date COLONOSCOPY 07/14/2015 Insurance Providers Payer Name Payer Address Payer Phone Subscriber Number Group Number Insured Name Patient Relationship to Insured Coverage Start Date Coverage End Date [facility] [employer] [facility] [address] [address] [place], [place] [id number] MAGEN SAHA Self - patient is the insured Medical (General) History Medical History History ICD Code diabetes mellitus asthma allergic rhinitis colonoscopy 11/18/15, followup due 11/29 Surgical History Surgery Date(Month/Year) breast reduction 2012 parathyroidectomy ovarian cystectomy
[2025-06-10 10:41] LABS: Alanine Aminotransferase 47 U/L (0-31); Albumin Level 4.3 g/dL (3.5-5.0); Alkaline Phosphatase 55 U/L (39-117); Anion Gap 12 (12-20); Aspartate Amino Transferase 37 U/L (5-31); Blood Urea Nitrogen 13 mg/dL (9-16); Calcium 9.0 mg/dL (8.4-10.2); Carbon Dioxide 26 mmol/L (22-29); Chloride 107 mmol/L (96-108); Cholesterol 171 mg/dL (<200); Estimated Glomerular Filt Rate > 60; HDL Cholesterol 34 mg/dL (>40); Potassium 4.5 mmol/L (3.3-5.1); Sodium 140 mmol/L (135-145); Total Protein 7.0 g/dL (6.5-8.0); Triglycerides 308 mg/dL (<150)
[2025-06-10 11:23] LABS: Microalbum/Creatinine Ratio Ur 23.5 ug/mg cr (<30)
== END 2025-06-10 09:24 | disposition home or self-care (01) ==
LOC: HO.LAB 09:23
PROVIDERS: PCP Internal Medicine; Visit Provider Internal Medicine
DX: E11.65 Type 2 diabetes mellitus with hyperglycemia (principal); E78.5 Hyperlipidemia, unspecified; R80.9 Proteinuria, unspecified; E55.9 Vitamin D deficiency, unspecified
CPT/HCPCS: 36415; 80053; 80061; 82043; 82306; 82570

== ENCOUNTER 2025-06-16 09:27 | Outpatient (REF) | payer OTHER, SELFPAY ==
--- NOTE | ~2025-06-16 | MM_ITS ---
EXAMINATION: MM SCREENING DIGITAL BREAST TOMOSYNTHESIS, BILATERAL CLINICAL INFORMATION: Screening. Asymptomatic. COMPARISON: Comparison made to multiple prior, most recent June 10, 2024, and most remote May 28, 2019. TECHNIQUE: Digital breast tomosynthesis is performed in both the craniocaudal and mediolateral oblique views along with computer-aided detection (CAD). FINDINGS: BREAST COMPOSITION: There are scattered areas of fibroglandular density (ACR BI-RADS breast composition Category b). BILATERAL BREASTS: Status post bilateral reduction mammoplasty. No significant masses, suspicious calcifications or other abnormalities are seen in either breast. MM/MM tomosynthesis screening BI IMPRESSION: BILATERAL BREASTS: Benign, no mammographic evidence of malignancy. Normal interval follow-up is recommended in 12 months. ASSESSMENT: BI-RADS 2 - Benign Findings RECOMMENDATION: Routine annual mammography screening. FOLLOW-UP: 1 year F/U This examination should not preclude the clinical evaluation of a suspicious palpable abnormality. This patient's information was entered into a reminder system with a target due date for their next mammogram. Electronically signed by: Hola Freemna MD 06/21/2025 08:04 PM EDT
--- OUTSIDE RECORDS SUMMARY | 2025-06-16 09:54 | XMS_ITS | Clinical Summary ---
Author Organization [facility] Address [address] [place] [address] Phone Care Team Providers Care Road Roller Operator Name Role Phone Mery Garduno MD Primary Care Provider [phone] Allergies Active Allergy Reactions Criticality Noted Date Comments Ibuprofen Diarrhea,Weakness 04/05/2017 Iodine 04/10/2018 [place] [employer] 02/26/2025 Medications cholecalcifero l (VITAMIN D-3) [...] (two) times a day. 5 Active FreeStyle [place] Lite monitoring kit See administration instructions. 4 [...] Site/Laterality Comments OVARIAN CYST REMOVAL Right PROCEDURE: [place] OVARIAN CYSTECTOMY UNI/BI BREAST SURGERY PROCEDURE: [place] UNLISTED PROCEDURE BREAST; COMMENT: bilateral breast reduction OTHER SURGICAL HISTORY PROCEDURE: HISTORICAL PARATHYROID SURGERY Medical History Medical History Date Comments Asthma DX:Asthma Diabetes mellitus, type 2 (C MS/HCC V24, [facility]/HCC V28) 04/13/2019 DX:Diabetes mellitus, type 2 (HCC) [...] Industry Job Start Date Job End Date [employer] pre- K Not on file Not on [...] with reflex genotype (02/26/2025 10:05 AM EDT) [facility] HPV Negative Negative LAB MICROBIOLOGY METHOD 03/01/2025 1:07 PM EDT [facility] Brushing/Spatula Cervix uteri structure / Unknown 02/26/2025 10:05 AM EDT 03/01/2025 6:28 AM EDT [facility] MOLECULAR DIAGNOSTICS ORD ERABLES Final Result [facility] [address] [place] [address], [place] [phone] * MG Mammo Digital Diagnostic bilat (06/10/2024 2:49 PM EDT) Anatomical Region Laterality Modality Breast Bilateral Mammography Historical Provider IMG BI PROCEDURES Final R esult * Depression Screening (04/13/2019) Pathologist [facility] Depression Screening abstracted Historical Provider HEALTH MAINTENANCE Final Result * HIV Screening (04/10/2018) Pathologist [facility] HIV Screening abstracted Historical Provider HEALTH MAINTENANCE Final Result * Hepatitis C Screening (04/05/2017) [facility] Hepatitis C Screening abstracted Historical Provider HEALTH MAINTENANCE Final Result from Last 3 Months or Most Recently Relevant to Health Maintenance Insurance [employer] Care Teams Road Roller Operator Relationship Specialty Start Date End Date Mery Garduno MD [address] [place] [address] , [address] [facility] D[facility]B/A: [facility] [place], [place] PCP - General Internal Medicine 04/05/17
--- OUTSIDE RECORDS SUMMARY | 2025-06-16 09:55 | XMS_ITS | Patient Health Record ---
Author Organization [facility] Address [address] [place] [address] Care Team Providers Care Warehouse Production Worker Name Role Phone Mery Guerrero Primary Care Provider Attila Hutson Jr Unavailable Allergies Allergen (clinical drug ingredient) Drug/Non Drug [...] Problem Status W/U Status Risk Notes Problem [id number] Fatty liver (K76.0) Active confirmed Problem 845254505 Elevated liver function tests (R94.5) Active confirmed Problem [id number] Gallbladder polyp (K82.4) Active confirmed Plan Of Treatment Future Test Test Name Order Date COLONOSCOPY 07/14/2015 Insurance Providers Payer Name Payer Address Payer Phone Subscriber Number Group Number Insured Name Patient Relationship to Insured Coverage Start Date Coverage End Date [facility] [employer] [facility] [address] [address] [place], [place] [phone] [id number] MAGEN SAHA Self - patient is the insured Medical (General) History Medical History History ICD Code diabetes mellitus asthma allergic rhinitis colonoscopy 11/18/15, followup due 11/29 Surgical History Surgery Date(Month/Year) breast reduction 2012 parathyroidectomy ovarian cystectomy
== END 2025-06-16 09:28 | disposition home or self-care (01) ==
LOC: HO.MAMMO 09:27
PROVIDERS: PCP Internal Medicine; Visit Provider Internal Medicine
DX: Z12.31 Encounter for screening mammogram for malignant neoplasm of breast (principal)
CPT/HCPCS: 77063; 77067

== ENCOUNTER → 2025-06-16 09:45 | Outpatient (BNV) | payer OTHER, SELFPAY | PROVIDERS: PCP Internal Medicine; Visit Provider Radiology Body Imaging | DX: Z12.31 Encounter for screening mammogram for malignant neoplasm of breast (principal) | CPT/HCPCS: 77063; 77067 ==

== ENCOUNTER 2025-06-17 08:57 | Outpatient (AMB) | payer OTHER, SELFPAY ==
--- NOTE | 2025-06-17 09:10 | A.OFFPC_ITS ---
Vital Signs 06/17/25 09:12 Height 5 ft 5 in Weight 161 lb 6 oz BMI 26.9 BP 136/52 L Blood Pressure Location Lt brachial Position Sitting Pulse 101 H Pulse Source Pulse Oximeter Pulse Oximetry (%) 96 Oxygen Delivery Method Room Air Intake Visit Reasons: dm Regrind Mill Operator Required: No Accompanied by: Self / Same As Patient Allergies Iodinated Contrast Media (IV Dye, Iodine Containing) Allergy (Severe, Verified 06/17/25 09:17) VOMITING/SWELLING ibuprofen (From MOTRIN) Allergy (Intermediate, Verified 06/17/25 09:17) NAUSEA, stomach upset pravastatin Adverse Reaction (Intermediate, Verified 06/17/25 09:17) elevated liver enzymes Medication List - Last Reconciled 06/17/25 by Mery Garduno MD acetaminophen 500 mg PO Q6H PRN amitriptyline 10 mg PO BEDTIME 90 days blood sugar diagnostic (FreeStyle Lite Strips) 1 strip miscellaneous BID 30 days blood-glucose meter (FreeStyle Lite Meter kit) As directed ezetimibe 10 mg PO DAILY 90 days flash glucose sensor (FreeStyle [place] 14 Day Sensor kit) As directed fluticasone propionate 50 mcg/actuation 1 spray intranasal BID glipizide 10 mg PO BID 90 days hydrocortisone 1% (Anti-Itch (hydrocortisone)) 1 appl topical TID PRN 2 weeks lancets (FreeStyle Lancets) As directed metformin 1,000 mg PO BID 90 days semaglutide (Ozempic) 1 mg (0.75 mL) subcut QWEEK 4 weeks Tobacco use date assessed: 06/17/25 Dental Screening Dental Screen Date: 06/17/25 Did you have a dental visit in the last 12 months?: No Did you have a dental problem in the last 6 months where you did not have access to dental care?: No Was dental information given to patient?: No HPI HPI Comments History of Present Illness Details The patient is a 63-year-old female presenting for a routine follow-up and management of chronic conditions including hyperlipidemia and diabetes mellitus. A1 C today 7.9% The patient has a history of hyperlipidemia, with recent laboratory results showing an LDL cholesterol level of 76 mg/dL, which is considered excellent. However, liver enzymes remain slightly elevated, which may be attributed to cholesterol medications. The patient also has diabetes mellitus and is currently on a regimen that includes metformin and glipizide. She is also prescribed Ozempic at a dose of 1 mg weekly to aid in glycemic control. The patient reports no history of smoking and denies any current use of tobacco products. She has allergies to contrast and ibuprofen, the latter causing stomach pain. Preventative care measures include a recent mammography, with results pending, and a planned colonoscopy, as it has been more than two years since the last one. [facility] Medical History Vitamin D deficiency Multinodular thyroid Poor compliance Thyroid nodule Allergic rhinitis Migraines Pure hypercholesterolemia Essential hypertension Diabetes mellitus Surgical History H/O bilateral breast reduction surgery History of removal of ovarian cyst History of parathyroidectomy Family History Father Leukemia Mother CVD (cardiovascular disease) Sister Thyroid disease Brother No problems noted. Social History Housing: Apartment Unable to assess alcohol history related to: Unknown Alcohol intake: never Patient Tobacco Use Status: Never used Tobacco e-Cigarette/Vaping Use: Never Used Second Hand Smoke Exposure: No service: No Current occupational status: unemployed Cognitive needs: No Hearing needs: No Vision needs: No Questionnaire PHQ-9 Over the last 2 weeks, how often have you been bothered by any of the following problems? 1. Little interest or pleasure in doing things: not at all 2. Feeling down, depressed, or hopeless: not at all 3. Trouble falling or staying asleep, or sleeping too much: not at all 4. Feeling tired or having little energy: not at all 5. Poor appetite or overeating: not at all 6. Feeling bad about yourself - or that you are a failure or have let yourself or your family down: not at all 7. Trouble concentrating on things, such as reading the newspaper or watching television: not at all 8. Moving or speaking so slowly that other people could have noticed. Or the opposite - being so fidgety or restless that you have been moving around a lot more than usual: not at all 9. Thoughts that you would be better off or of hurting yourself in some way: not at all Total score: 0 Depression Screening Interpretation: Negative Depression Screening Done: Yes 93006 - PHQ-9 Billing: Yes Source: Developed by Drs. Javi Farr, Lemuel Wang and colleagues, with an educational keira from [employer]. Thrive Questionnaire Date Thrive assessed: 06/17/25 I am a: Patient What is your living situation today?: I have a steady place to live Within the past 12 months, did the food you bought not last and you didn't have the money to get more?: Never true Within the past 12 months, did you worry whether your food would run out before you got money to buy more?: Never true Do you have trouble paying for medicines?: No Do you have trouble getting transportation to medical appointments?: No Do you have trouble paying your heating and electricity bill?: No Do you have trouble taking care of your child, family member or friend?: No Do you have trouble with day-to-day activities such as bathing, preparing meals, shopping, managing finances, etc.?: No Are you currently unemployed and looking for a job?: No Are you interested in more education?: No Please select the resources that you would like help with: None Currently or been in a relationship where the following occur: No concerns reported THRIVE Score: 0 KEVIN-7 AMB Questionnaire KEVIN-7 Date KEVIN - 7 assessed: 06/17/25 Feeling nervous, anxious, or on edge: 0 = Not at all Not being able to stop or control worryin = Not at all Worrying too much about different things: 0 = Not at all Trouble relaxin = Not at all Being so restless that it is hard to sit still: 0 = Not at all Becoming easily annoyed or irritable: 0 = Not at all Feeling afraid as if something awful might happen: 0 = Not at all Total KEVIN-7 score (0-4 normal; 5-9 mild; 10-14 moderate; 15-21 severe): 0 Source: Developed by Drs. Jaiv Farr, Radha Clements, Lemuel Mistry and colleagues, with an educational keira from [employer]. KEVIN-7 Assessment Billing KEVIN-7 Assessment Tool: KEVIN-7 Assessment 96629 Review of Systems Const All systems reviewed & are unremarkable except as noted in HPI and below Card Denies chest pain at rest, Denies chest pain with activity, Denies edema, Denies irregular heart rhythm, Denies claudication, Denies dyspnea, Denies dyspnea on exertion, Denies orthopnea, Denies paroxysmal nocturnal dyspnea and Denies slow heart rate Resp Denies cough, Denies dyspnea and Denies dyspnea on exertion GI Denies abdominal pain, Denies change in bowel habits, Denies excessive flatus, Denies nausea and Denies vomiting Physical exam (Primary Care) Vital Signs: Last Vital Signs Pulse 101 H 06/17/25 09:12 BP 136/52 L 06/17/25 09:12 Pulse Ox 96 06/17/25 09:12 Oxygen Delivery Method Room Air 06/17/25 09:12 BMI result Body Mass Index 26.9 Tobacco/Smoking Status: Tobacco use Status Tobacco use date assessed 06/17/25 06/17/25 09:16 Patient Tobacco Use Status Never used Tobacco 06/17/25 09:11 e-Cigarette/Vaping Use Never Used 06/17/25 09:11 PHQ-9: PHQ-9 Score PHQ-9: Total score 0 06/17/25 09:31 Depression Screening Interpretation: Negative Thrive Assessment: Date of Thrive Assessment Date Thrive assessed 06/17/25 06/17/25 09:11 Currently or been in a relationship where the following occur: No concerns reported Resp Effort & Inspection: normal respiratory effort Auscultation: clear to auscultation bilaterally Cardio Jugular venous distension: no JVD Rate: regular rate Rhythm: regular rhythm Heart sounds: S1 normal heart sound present and S2 normal heart sound present Extrem General: Yes full ROM Results AMB Hemoglobin A1c AMB Hemoglobin A1c 7.9 % Last Edit by Elaine Weaver MA on 06/17/25 09:33 Results Reviewed Results Reviewed: Laboratory Last Values Hgb A1c (Clinic) 7.9 % (4.0-6.0) H 06/17/25 09:33 Coding Level of Care Code Est Pt Level 4 (65616) Complex EM visit Add On G2211 Diagnoses Type 2 diabetes mellitus with hyperglycemia, without long-term current use of insulin E11.65 Diabetes mellitus complication status: with hyperglycemia Diabetes mellitus termite renewal inspector insulin use: without assisted use Diabetes mellitus type: type 2 Pure hypercholesterolemia E78.00 Essential hypertension I10 Seasonal allergic rhinitis due to pollen J30.1 Allergic rhinitis seasonality: seasonal Allergic rhinitis trigger: pollen Additional Codes KEVIN-7 Assessment Billing - KEVIN-7 Assessment Tool: KEVIN-7 Assessment 97603 ([id number]) PHQ-9 - 62130 - PHQ-9 Billing: Yes ([id number]) Time Spent (min) 21 Assessment & Plan Assessment & Plan (1) Diabetes mellitus: Code(s): E11.9 - Type 2 diabetes mellitus without complications Category: Medical Qualifiers: Diabetes mellitus complication status: with hyperglycemia Diabetes mellitus termite renewal inspector insulin use: without termite renewal inspector use Diabetes mellitus type: type 2 Qualified Code(s): E11.65 - Type 2 diabetes mellitus with hyperglycemia (2) Pure hypercholesterolemia: Code(s): E78.00 - Pure hypercholesterolemia, unspecified Category: Medical (3) Essential hypertension: Code(s): I10 - Essential (primary) hypertension Category: Medical (4) Allergic rhinitis: Code(s): J30.9 - Allergic rhinitis, unspecified Category: Medical Qualifiers: Allergic rhinitis seasonality: seasonal Allergic rhinitis trigger: pollen Qualified Code(s): J30.1 - Allergic rhinitis due to pollen Plan The patient's hyperlipidemia is well-managed with current medications, as evidenced by an LDL cholesterol level of 76 mg/dL. However, the slightly elevated liver enzymes will be monitored, considering the potential impact of cholesterol medications. For diabetes management, the patient is on metformin and glipizide, with the addition of Ozempic at 1 mg weekly to improve glycemic control. The patient will continue to monitor blood glucose levels at home, with supplies provided for testing. Preventative care includes a recent mammography, with results pending, and a scheduled colonoscopy due to the lapse of more than two years since the last procedure. Patient was informed and verbally consented to the use of an ambient scribe for clinic note documentation during this visit. During the visit, I discussed with the patient the management of her hyp erlipidemia and diabetes mellitus. We reviewed her current medications and the importance of monitoring liver enzymes due to potential side effects. I also emphasized the need for regular blood glucose monitoring and provided supplies for home testing. Preventative care measures, including mammography and colonoscopy, were discussed, with the latter scheduled due to the time elapsed since the last procedure. Orders: Orders Vitamin D 25-OH Total 4 Months E55.9 - Vitamin D deficiency, unspecified Comprehensive [place]. Panel Fast 4 Months E11.65 - Type 2 diabetes mellitus with hyperglycemia XR DEXA axial skeleton Today Z78.0 - Asymptomatic menopausal state Lipid Panel 4 Months E78.5 - Hyperlipidemia, unspecified Microalbumin, Random (w Creat) 4 Months R80.9 - Proteinuria, unspecified Vitamin B12 and Folate 4 Months E53.8 - Deficiency of other specified B group vitamins AMB Hemoglobin A1c Today E11.65 - Type 2 diabetes mellitus with hyperglycemia Referrals Open Access Screening Colonoscopy Referral Z12.12 - Encounter for screening for malignant neoplasm of rectum Medications: Refilled blood sugar diagnostic (FreeStyle Lite Strips) 1 strip miscellaneous BID 50 st rips 11RF 30 days lancets (FreeStyle Lancets) As directed 100 ea 0RF Patient Instructions: - Continue current medications for hyperlipidemia and diabetes as prescribed. - Monitor blood glucose levels regularly and use the provided supplies. - Await results of the recent mammography and attend the scheduled colonoscopy.
[2025-06-17 09:12] VITALS: BP 136/52; PULSE 101; O2SAT 96; BMI 26.9
--- OUTSIDE RECORDS SUMMARY | 2025-06-17 09:22 | XMS_ITS | Clinical Summary ---
Author Organization [facility] Address [address] [place] [address] Phone Care Team Providers Care Insurance Application Investigator Name Role Phone Mery Garduno MD Primary Care Provider [phone] Allergies Active Allergy Reactions Criticality Noted Date Comments Ibuprofen Diarrhea,Weakness 04/05/2017 Iodine 04/10/2018 [place] [employer] 02/26/2025 Medications cholecalcifero l (VITAMIN D-3) [...] (two) times a day. 5 Active FreeStyle [place] Lite monitoring kit See administration instructions. 4 [...] Site/Laterality Comments OVARIAN CYST REMOVAL Right PROCEDURE: MD OVARIAN CYSTECTOMY UNI/BI BREAST SURGERY PROCEDURE: MD UNLISTED PROCEDURE BREAST; COMMENT: bilateral breast reduction OTHER SURGICAL HISTORY PROCEDURE: HISTORICAL PARATHYROID SURGERY Medical History Medical History Date Comments Asthma DX:Asthma Diabetes mellitus, type 2 (C MS/HCC V24, [facility]/HCC V28) 04/13/2019 DX:Diabetes mellitus, type 2 (HCC) [...] Industry Job Start Date Job End Date [employer]- pre- K Not on file Not on [...] with reflex genotype (02/26/2025 10:05 AM EDT) [facility] HPV Negative Negative LAB MICROBIOLOGY METHOD 03/01/2025 1:07 PM EDT [facility] Brushing/Spatula Cervix uteri structure / Unknown 02/26/2025 10:05 AM EDT 03/01/2025 6:28 AM EDT [facility] MOLECULAR DIAGNOSTICS ORD ERABLES Final Result [facility] [address] [place] [address], [place] [phone] * MG Mammo Digital Diagnostic bilat (06/10/2024 2:49 PM EDT) Anatomical Region Laterality Modality Breast Bilateral Mammography Historical Provider IMG BI PROCEDURES Final R esult * Depression Screening (04/13/2019) Pathologist [facility] Depression Screening abstracted Historical Provider HEALTH MAINTENANCE Final Result * HIV Screening (04/10/2018) Pathologist [facility] HIV Screening abstracted Historical Provider HEALTH MAINTENANCE Final Result * Hepatitis C Screening (04/05/2017) [facility] Hepatitis C Screening abstracted Historical Provider HEALTH MAINTENANCE Final Result from Last 3 Months or Most Recently Relevant to Health Maintenance Insurance [facility] [employer] Care Teams Insurance Application Investigator Relationship Specialty Start Date End Date Mery Garduno MD [address] [place] [address] , [address] [facility]ician [facility] D/B/A: [facility] [place] PCP - General Internal Medicine 04/05/17
--- OUTSIDE RECORDS SUMMARY | 2025-06-17 09:22 | XMS_ITS | Patient Health Record ---
Author Organization [facility] Address [address] [place] [address] Care Team Providers Care Manager Corporate Communications Name Role Phone Mery Guerrero Primary Care [...] Problem Status W/U Status Risk Notes Problem [id number] Fatty liver (K76.0) Active confirmed Problem [id number] Elevated liver function tests (R94.5) Active confirmed Problem [id number] Gallbladder polyp (K82.4) Active confirmed Plan Of Treatment Future Test Test Name Order Date COLONOSCOPY 07/14/2015 Insurance Providers Payer Name Payer Address Payer Phone Subscriber Number Group Number Insured Name Patient Relationship to Insured Coverage Start Date Coverage End Date [facility] [place] [facility] [address] [address] [place], [place] [id number] MAGEN SAHA Self - patient is the insured Medical (General) History Medical History History ICD Code diabetes mellitus asthma allergic rhinitis colonoscopy 11/18/15, followup due 11/29 Surgical History Surgery Date(Month/Year) breast reduction 2012 parathyroidectomy ovarian cystectomy
== END 2025-06-17 09:30 | disposition home or self-care (01) ==
LOC: HO.HMCH 09:04
PROVIDERS: PCP Internal Medicine; Visit Provider Internal Medicine
DX: E11.65 Type 2 diabetes mellitus with hyperglycemia (principal); E78.00 Pure hypercholesterolemia, unspecified; I10 Essential (primary) hypertension; J30.1 Allergic rhinitis due to pollen

== ENCOUNTER → 2025-06-17 08:57 | Outpatient (BNVA) | payer OTHER, SELFPAY | PROVIDERS: PCP Internal Medicine; Visit Provider Internal Medicine | DX: E11.65 Type 2 diabetes mellitus with hyperglycemia (principal); E78.00 Pure hypercholesterolemia, unspecified; I10 Essential (primary) hypertension; J30.1 Allergic rhinitis due to pollen; E55.9 Vitamin D deficiency, unspecified; R80.9 Proteinuria, unspecified; E53.8 Deficiency of other specified B group vitamins; Z79.899 Other long term (current) drug therapy | CPT/HCPCS: 83036; 96127; 99212 ==

== ENCOUNTER 2025-08-13 13:46 | Outpatient (REF) | payer OTHER, SELFPAY ==
--- NOTE | ~2025-08-13 | MM_ITS ---
EXAMINATION: DXA BONE DENSITY AXIAL HISTORY: Z78.0 - Asymptomatic menopausal state TECHNIQUE: [place] Dual energy absorptiometry (DEXA) of the lumbar spine, total left hip, and femoral neck was performed. COMPARISON: There are no prior studies for comparison. FINDINGS: The bone mineral density of the lumbar spine is 1.353 g/cm2, corresponding to a T-score of 1.4, and a Z-score of 2.6. This is indicative of normal bone mineral density. The bone mineral density of the left total hip is 1.060 g/cm2, corresponding to a T-score of 0.4, and a Z-score of 1.3. This is indicative of normal bone mineral density. The bone mineral density of the left femoral neck is 0.912 g/cm2, corresponding to a T-score of -0.9, and a Z-score of 0.3. This is indicative of normal bone mineral density. FRACTURE RISK: The FRAX index suggests a risk of major osteoporotic fracture of 4.1%, and of hip fracture 0.2%. MM/XR DEXA axial skeleton IMPRESSION: Based on bone mineral density, and according to World Health Organization (WHO) criteria, the diagnosis is consistent with normal bone mineral density. Statistically, 68% of repeat scans fall within 1 SD (+/- 0.010 g/cm2 for AP spine L1-L4) and 1 SD (+/- 0.012 g/cm2 for femur total) FRAX is a trademark of the [employer] [place] [employer] Metabolic Bone Disease, a World Health Organization (WHO) Collaborating Center. Electronically signed by: Javi De La Cruz MD 08/13/2025 03:04 PM EDT
== END 2025-08-13 13:47 | disposition home or self-care (01) ==
LOC: HO.MAMMO 13:46
PROVIDERS: PCP Internal Medicine; Visit Provider Internal Medicine
DX: Z13.820 Encounter for screening for osteoporosis (principal); Z78.0 Asymptomatic menopausal state
CPT/HCPCS: 77080

== ENCOUNTER → 2025-08-13 14:30 | Outpatient (BNV) | payer OTHER, SELFPAY | PROVIDERS: PCP Internal Medicine; Visit Provider Radiology Diagnostic Radiology | DX: E28.39 Other primary ovarian failure (principal) | CPT/HCPCS: 77080 ==

== ENCOUNTER 2025-09-17 06:58 | Outpatient (REF) | payer OTHER, SELFPAY ==
--- OUTSIDE RECORDS SUMMARY | 2025-09-17 07:01 | XMS_ITS | Patient Health Record ---
Author Organization [facility] Address [address] [place] [address] Care Team Providers Care Wood Chopper Name Role Phone Mery Guerrero Primary Care [...] Problem Status W/U Status Risk Notes Problem Fatty liver (572109135) Fatty liver (K76.0) Active confirmed Problem Elevated liver enzymes level (650154965) Elevated liver function tests (R94.5) Active confirmed Problem Gallbladder polyp (261372789) Gallbladder polyp (K82.4) Active confirmed Plan Of Treatment Future Test Test Name Order Date COLONOSCOPY 07/14/2015 Insurance Providers Payer Name Payer Address Payer Phone Subscriber Number Group Number Insured Name Patient Relationship to Insured Coverage Start Date Coverage End Date [facility] [address] [address] [place], [place] [id number] MAGEN SAHA Self - patient is the insured Medical (General) History Medical History History ICD Code diabetes mellitus asthma allergic rhinitis colonoscopy 11/18/15, followup due 11/29 Surgical History Surgery Date(Month/Year) breast reduction 2012 parathyroidectomy ovarian cystectomy
--- OUTSIDE RECORDS SUMMARY | 2025-09-17 07:01 | XMS_ITS | Clinical Summary ---
Author Organization [facility] Address [address] [place] [address] Phone Care Team Providers Care Breakdown Person Name Role Phone Mery Garduno MD Primary Care Provider [phone] Allergies Active Allergy Reactions Criticality Noted Date Comments Ibuprofen Diarrhea,Weakness 04/05/2017 Iodine 04/10/2018 [place] [employer] 02/26/2025 Medications cholecalcifero l (VITAMIN D-3) [...] (two) times a day. 5 Active FreeStyle [place] Lite monitoring kit See administration instructions. 4 [...] Site/Laterality Comments OVARIAN CYST REMOVAL Right PROCEDURE: PA OVARIAN CYSTECTOMY UNI/BI BREAST SURGERY PROCEDURE: PA UNLISTED PROCEDURE BREAST; COMMENT: bilateral breast reduction OTHER SURGICAL HISTORY PROCEDURE: HISTORICAL PARATHYROID SURGERY Medical History Medical History Date Comments Asthma DX:Asthma Diabetes mellitus, type 2 (C MS/HCC V24, [facility]/HCC V28) 04/13/2019 DX:Diabetes mellitus, type 2 (HCC) [...] Industry Job Start Date Job End Date [employer]- pre- K Not on file Not on [...] Health Maintenance Due Date Last Done Comments Colorectal Cancer Screening: Colonoscopy 08/12/1963 Diabetes: Annual GFR (Glomerular Filtration Rate) 08/12/1963 Diabetes: Annual Foot Exam 08/12/1973 Diabetes: Annual Retina Eye Exam 08/12/1973 DTaP,Tdap,and Td Vaccines (1 - Tdap) 08/12/1982 Pneumococcal Vaccine: 50+ Years (1 of 2 - PCV) 08/12/1982 Zoster Vaccines (1 of 2) 08/12/2013 Cholesterol Screening (Lipid Panel) 10/03/2022 Social Influencers of Health Screening 10/03/2022 Diabetes: Annual Urine Albumin-Creatinine Ratio (uACR) 10/11/2022 Diabetes: Blood Sugar Contro l Test (HGBA1C) 10/11/2022 Depression Screening 11/04/2024 04/13/2019 COVID-19 Vaccine (1 - 2024-2 6 season) 2025 Influenza Vaccine (#1) 2025 , 07/26/2023 Breast [...] with reflex genotype (02/26/2025 10:05 AM EDT) Pathologist [facility] HPV Negative Negative LAB MICROBIOLOGY METHOD 03/01/2025 1:07 PM EDT [facility] Brushing/Spatula Cervix uteri structure / Unknown 02/26/2025 10:05 AM EDT 03/01/2025 6:28 AM EDT [facility] MOLECULAR DIAGNOSTICS ORD ERABLES Final Result [facility] [address] [place] [address], [place] [phone] * MG Mammo Digital Diagnostic bilat (06/10/2024 2:49 PM EDT) Anatomical Region Laterality Modality Breast Bilateral Mammography Historical Provider IMG BI PROCEDURES Final R esult * Depression Screening (04/13/2019) Depression Screening abstracted Historical Provider HEALTH MAINTENANCE Final Result * HIV Screening (04/10/2018) Pathologist [facility] HIV Screening abstracted Historical Provider HEALTH MAINTENANCE Final Result * Hepatitis C Screening (04/05/2017) Pathologist [facility] Hepatitis C Screening abstracted Historical Provider HEALTH MAINTENANCE Final Result from Last 3 Months or Most Recently Relevant to Health Maintenance Insurance [facility] Care Teams Breakdown Person Relationship Specialty Start Date End Date Mery Garduno MD [address] [place] [address] , [address] [facility] Physician Associ D/B/A: [facility] [place] PCP - General Internal Medicine 04/05/17
[2025-09-17 08:26] LABS: Microalbum/Creatinine Ratio Ur 18.4 ug/mg cr (<30)
[2025-09-17 08:44] LABS: Alanine Aminotransferase 39 U/L (0-31); Albumin Level 4.5 g/dL (3.5-5.0); Alkaline Phosphatase 66 U/L (39-117); Anion Gap 17 (12-20); Aspartate Amino Transferase 32 U/L (5-31); Blood Urea Nitrogen 15 mg/dL (9-16); Calcium 9.7 mg/dL (8.4-10.2); Carbon Dioxide 21 mmol/L (22-29); Chloride 105 mmol/L (96-108); Cholesterol 192 mg/dL (<200); Estimated Glomerular Filt Rate > 60; HDL Cholesterol 37 mg/dL (>40); Potassium 4.3 mmol/L (3.3-5.1); Sodium 139 mmol/L (135-145); Total Protein 7.5 g/dL (6.5-8.0); Triglycerides 280 mg/dL (<150)
[2025-09-17 09:06] LABS: Folate 12.7 ng/mL (> or = 4.0); Vitamin B12 242 pg/mL (200-900)
== END 2025-09-17 06:59 | disposition home or self-care (01) ==
LOC: HO.LAB 06:58
PROVIDERS: PCP Internal Medicine; Visit Provider Internal Medicine
DX: E11.65 Type 2 diabetes mellitus with hyperglycemia (principal); E53.8 Deficiency of other specified B group vitamins; E78.5 Hyperlipidemia, unspecified; E55.9 Vitamin D deficiency, unspecified; R80.9 Proteinuria, unspecified
CPT/HCPCS: 36415; 80053; 80061; 82043; 82306; 82570; 82607; 82746

== ENCOUNTER 2025-09-21 15:58 | Outpatient (AMB) | payer OTHER, SELFPAY ==
[2025-09-21 16:40] VITALS: BP 108/62; PULSE 101; RESP 18; O2SAT 95; BMI 27.3
--- NOTE | 2025-09-21 16:40 | A.OFFPC_ITS ---
Vital Signs 09/21/25 16:40 Height 5 ft 5 in Weight 164 lb BMI 27.3 BP 108/62 Blood Pressure Location Lt brachial Position Sitting Respiration 18 Pulse 101 H Pulse Source Pulse Oximeter Temp Source Temporal Artery Scan Pulse Oximetry (%) 95 Oxygen Delivery Method Room Air Intake Visit Reasons: dm 3 month follow up Customer Solutions Specialist Required: No Accompanied by: Self / Same As Patient Allergies Iodinated Contrast Media (IV Dye, Iodine Containing) Allergy (Severe, Verified 09/21/25 16:56) VOMITING/SWELLING ibuprofen (From MOTRIN) Allergy (Intermediate, Verified 09/21/25 16:56) NAUSEA, stomach upset pravastatin Adverse Reaction (Intermediate, Verified 09/21/25 16:56) elevated liver enzymes Medication List - Last Reconciled 09/21/25 by Mery Garduno MD acetaminophen 500 mg PO Q6H PRN amitriptyline 10 mg PO BEDTIME 90 days blood sugar diagnostic (FreeStyle Lite Strips) 1 strip miscellaneous BID 30 days blood-glucose meter (FreeStyle Lite Meter kit) As directed ezetimibe 10 mg PO DAILY 90 days flash glucose sensor (FreeStyle Marysol 14 Day Sensor kit) As directed fluticasone propionate 50 mcg/actuation 1 spray intranasal BID glipizide 10 mg PO BID 90 days hydrocortisone 1% (Anti-Itch (hydrocortisone)) 1 appl topical TID PRN 2 weeks lancets (FreeStyle Lancets) As directed metformin 1,000 mg PO BID 90 days semaglutide (Ozempic) 1 mg (0.75 mL) subcut QWEEK 4 weeks Tobacco use date assessed: 09/21/25 Dental Screening Dental Screen Date: 09/21/25 Did you have a dental visit in the last 12 months?: No Did you have a dental problem in the last 6 months where you did not have access to dental care?: No Was dental information given to patient?: No HPI HPI Comments History of Present Illness Details The patient is a 64-year-old female presenting for management of chronic conditions, primarily type 2 diabetes and hyperlipidemia. Her current medications include Tylenol as needed, amitriptyline at night, ezetimibe 10 mg for cholesterol, and metformin 1000 mg twice daily. She has known allergies to contrast dye, ibuprofen, and pravastatin. Regarding her diabetes, a recent HbA1c was 8.4%, with a blood glucose level of 166 mg/dL measured four days prior to the visit. She has previously used Ozempic, but it was not approved by her insurance plan. She reports not having tried Jardiance. For hyperlipidemia, the patient is on ezetimibe, and recent labs show an LDL of 99 mg/dL, which is an increase from a previous level of 70 mg/dL. Other recent lab results from four days ago indicate normal renal function and slightly elevated liver enzymes at 32 U/L, with the normal range being up to 31 U/L. [facility] Medical History (Updated 09/21/25 @ 17:08 by Mery Garduno MD) Vitamin D deficiency Multinodular thyroid Poor compliance Thyroid nodule Allergic rhinitis Migraines Pure hypercholesterolemia Essential hypertension Diabetes mellitus Surgical History H/O bilateral breast reduction surgery History of removal of ovarian cyst History of parathyroidectomy Family History Father Leukemia Mother CVD (cardiovascular disease) Sister Thyroid disease Brother No problems noted. Social History Housing: Apartment Alcohol intake: never Patient Tobacco Use Status: Never used Tobacco e-Cigarette/Vaping Use: Never Used Second Hand Smoke Exposure: No service: No Current occupational status: unemployed Cognitive needs: No Hearing needs: No Vision needs: No Questionnaire Thrive Questionnaire Date Thrive assessed: 09/21/25 I am a: Patient What is your living situation today?: I have a steady place to live Within the past 12 months, did the food you bought not last and you didn't have the money to get more?: Never true Within the past 12 months, did you worry whether your food would run out before you got money to buy more?: Never true Do you have trouble paying for medicines?: No Do you have trouble getting transportation to medical appointments?: No Do you have trouble paying your heating and electricity bill?: No Do you have trouble taking care of your child, family member or friend?: No Do you have trouble with day-to-day activities such as bathing, preparing meals, shopping, managing finances, etc.?: No Are you currently unemployed and looking for a job?: No Are you interested in more education?: No Please select the resources that you would like help with: None Currently or been in a relationship where the following occur: No concerns reported THRIVE Score: 0 AUDIT C Alcohol Use Questionnaire (AUDIT-C) 1. How often do you have a drink containing alcohol?: Never Total Score: 0 Score Reviewed/Action Taken: No KEVIN-7 AMB Questionnaire KEVIN-7 Date KEVIN - 7 assessed: 06/17/25 Feeling nervous, anxious, or on edge: 0 = Not at all Not being able to stop or control worryin = Not at all Worrying too much about different things: 0 = Not at all Trouble relaxin = Not at all Being so restless that it is hard to sit still: 0 = Not at all Becoming easily annoyed or irritable: 0 = Not at all Feeling afraid as if something awful might happen: 0 = Not at all Total KEVIN-7 score (0-4 normal; 5-9 mild; 10-14 moderate; 15-21 severe): 0 Source: Developed by Drs. Javi Farr, Radha Clements, Lemuel Mistry and colleagues, with an educational keira from [employer]. KEVIN-7 Assessment Billing KEVIN-7 Assessment Tool: KEVIN-7 Assessment 97151 Review of Systems Const All systems reviewed & are unremarkable except as noted in HPI and below Card Denies chest pain at rest, Denies chest pain with activity, Denies edema, Denies irregular heart rhythm, Denies claudication, Denies dyspnea, Denies dyspnea on exertion, Denies orthopnea, Denies paroxysmal nocturnal dyspnea and Denies slow heart rate Resp Denies cough, Denies dyspnea and Denies dyspnea on exertion GI Denies abdominal pain, Denies change in bowel habits, Denies excessive flatus, Denies nausea and Denies vomiting Denies urinary incontinence, Denies urinary hesitancy and Denies urinary urgency Neuro Denies lack of coordination Physical exam (Primary Care) Vital Signs: Last Vital Signs Pulse 101 H 09/21/25 16:40 Resp 18 09/21/25 16:40 BP 108/62 09/21/25 16:40 Pulse Ox 95 09/21/25 16:40 Oxygen Delivery Method Room Air 09/21/25 16:40 BMI result Body Mass Index 27.3 Tobacco/Smoking Status: Tobacco use Status Tobacco use date assessed 09/21/25 09/21/25 16:45 Patient Tobacco Use Status Never used Tobacco 09/21/25 16:45 e-Cigarette/Vaping Use Never Used 09/21/25 16:45 Thrive Assessment: Date of Thrive Assessment Date Thrive assessed 09/21/25 09/21/25 16:45 Currently or been in a relationship where the following occur: No concerns reported Resp Effort & Inspection: normal respiratory effort Auscultation: clear to auscultation bilaterally Cardio Jugular venous distension: no JVD Rate: regular rate Rhythm: regular rhythm Heart sounds: S1 normal heart sound present and S2 normal heart sound present Extrem General: Yes full ROM Results AMB Hemoglobin A1c AMB Hemoglobin A1c 8.1 % Last Edit by Zoë Art MA on 09/21/25 17:27 Results Reviewed Results Reviewed: Laboratory Last Values Hgb A1c (Clinic) 8.1 % (4.0-6.0) H 09/21/25 17:17 Coding Level of Care Code Est Pt Level 4 (03851) Complex EM visit Add On G2211 Diagnoses Type 2 diabetes mellitus with hyperglycemia, without long-term current use of insulin E11.65 Diabetes mellitus type: type 2 Diabetes mellitus nursing home insulin use: without nursing home use Diabetes mellitus complication status: with hyperglycemia Essential hypertension I10 Pure hypercholesterolemia E78.00 Left shoulder pain M25.512 Additional Codes KEVIN-7 Assessment Billing - KEVIN-7 Assessment Tool: KEVIN-7 Assessment [id number] ([id number]) Time Spent (min) 22 Assessment & Plan Assessment & Plan (1) Diabetes mellitus: Code(s): E11.9 - Type 2 diabetes mellitus without complications Category: Medical Qualifiers: Diabetes mellitus type: type 2 Diabetes mellitus nursing home insulin use: without sheep shearer use Diabetes mellitus complication status: with hyperglycemia Qualified Code(s): E11.65 - Type 2 diabetes mellitus with hyperglycemia (2) Essential hypertension: Code(s): I10 - Essential (primary) hypertension Category: Medical (3) Pure hypercholesterolemia: Code(s): E78.00 - Pure hypercholesterolemia, unspecified Category: Medical (4) Left shoulder pain: Code(s): M25.512 - Pain in left shoulder Category: Medical Plan Plan 1. Type 2 Diabetes Mellitus The patient's diabetes is inadequately controlled, as evidenced by a recent HbA1c of 8.4% and a blood sugar of 166 mg/dL. She is currently taking metformin 1000 mg twice daily. Considered increasing Ozempic to 2 mg as a potential next step, noting that glipizide is a less preferred option. 2. Hyperlipidemia The patient's LDL cholesterol has risen to 99 mg/dL from a previous level of 70 mg/dL while on ezetimibe 10 mg. It was noted that ezetimibe is having some effect, but statin therapy is stronger. Will continue to monitor cholesterol levels on the current regimen. 3. Hypertension Continue lisinopril. Blood pressure goal is equal or less than 130/80. 4. Left shoulder pain X-ray ordered. Referred to physical therapy. Referred to ortho. Orders: Orders PT Evaluation and Treatment Today M25.512 - Pain in left shoulder Comprehensive [place]. Panel Fast 4 Months E11.65 - Type 2 diabetes mellitus with hyperglycemia XR shoulder LT min 2V Today M25.512 - Pain in left shoulder Lipid Panel 4 Months E78.5 - Hyperlipidemia, unspecified Microalbumin, Random (w Creat) 4 Months R80.9 - Proteinuria, unspecified AMB Hemoglobin A1c Today Z13.9 - Encounter for screening, unspecified Referrals Orthopedics Referral M25.512 - Pain in left shoulder Medications: New semaglutide (Ozempic) 2 mg (0.75 mL) subcut QWEEK 3 mL 0RF 4 weeks E11.65 - Type 2 diabetes mellitus with hyperglycemia empagliflozin (Jardiance) 10 mg PO DAILY 90 tabs 1RF 90 days Discontinued semaglutide (Ozempic) Discontinued Reason: Patient Completed Course 1 mg (0.75 mL) subcut QWEEK 4 weeks 3 mL 6RF E11.65 - Type 2 diabetes mellitus with hyperglycemia glipizide Discontinued Reason: Patient Completed Course 10 mg PO BID 90 days 180 tabs 1RF E11.9 - Type 2 diabetes mellitus without complications
== END 2025-09-21 17:09 | disposition home or self-care (01) ==
LOC: HO.HMCH 15:59
PROVIDERS: PCP Internal Medicine; Visit Provider Internal Medicine
DX: E11.65 Type 2 diabetes mellitus with hyperglycemia (principal); I10 Essential (primary) hypertension; E78.00 Pure hypercholesterolemia, unspecified; M25.512 Pain in left shoulder; Z13.9 Encounter for screening, unspecified

== ENCOUNTER → 2025-09-21 15:58 | Outpatient (BNVA) | payer OTHER, SELFPAY | PROVIDERS: PCP Internal Medicine; Visit Provider Internal Medicine | DX: E11.65 Type 2 diabetes mellitus with hyperglycemia (principal); E78.00 Pure hypercholesterolemia, unspecified; I10 Essential (primary) hypertension; M25.512 Pain in left shoulder; R80.9 Proteinuria, unspecified; Z79.899 Other long term (current) drug therapy | CPT/HCPCS: 83036; 96127; 99212 ==